=== PATIENT | male | born 1955 ===

== ENCOUNTER 2017-06-19 17:39 | Inpatient (IN) | payer BC ==
[2017-06-19 18:13] LABS: BASO # 0.04 K/mm3 (0.0-2.0); BASO % 0.5 % (0.0-3.0); EOS # 0.3 (0.0-0.7); GRAN # 4.96 (1.4-6.5); GRAN % 60.3 % (50.0-68.0); HEMOGLOBIN 12.6 g/dL (14.0-18.0); LYMPH # 2.5 (1.2-3.4); LYMPH % 30.6 % (22.0-35.0); MEAN CELL VOLUME 82.7 fl (80.0-105.0); MEAN CORPUSCULAR HEMOGLOBIN 28.3 pg (25.0-35.0); MEAN CORPUSCULAR HGB CONC 34.2 g/dl (31.0-37.0); MEAN PLATELET VOLUME 10.5 fl (7.0-11.0); MONO # 0.5 (0.1-0.6); MONO % 5.6 % (1.0-6.0); RBC 4.45 10^6/uL (3.5-6.1); RED CELL DISTRIBUTION WIDTH 13.1 % (11.5-14.5); WHITE BLOOD COUNT 8.2 10^3/ul (4.5-11.0)
--- NOTE | 2017-06-19 18:13 | ED PDOC ---
Arrival/HPI - General Chief Complaint: Weakness/Neurological Deficit Time Seen by Provider: 06/19/17 18:07 Historian: Patient - History of Present Illness Narrative History of Present Illness (Text): 06/19/17 18:05 pt p/w + extreme fatigue/weakness x 4 days ago; pt states he was showering at the time and suddenly felt extreme weakness/nearly passed out; no cold sweats noted, no chest pain, no tightness noted, no fever/chills/sweats, no sob, + palpitations, no abd pain, no n/v, no new numbness/tingling; pt did not feel any improvements with his weakness/fatigue and went to see his PCP today who obtained an ekg which was abnl and pt was instructed to come to ED for further eval; pt denied LOC, no roman, no vision changes, no slurr speech, no facial changes, no fall/trauma/sick contact, no travel; pt denied rashes, no urinary/ bowel changes, no other complaints pt is here for further eval. PCP: ANN MARIE Cards: Malvin Time/Duration: < week (4 days) Symptom Onset: Gradual Symptom Course: Unchanged Activities at Onset: Rest Context: Home Past Medical History - Provider Review Nursing Documentation Reviewed: Yes - Travel History Have you recently traveled outside [place] w/in the past 3 mons?: No - Past History Past History: No Previous - Infectious Disease Hx of Infectious Diseases: None - Cardiac Hx Hypertension: Yes - Pulmonary Hx Respiratory Disorders: No - Neurological Hx Paralysis: No - HEENT Hx HEENT Disorder: No - Renal Hx Renal Disorder: No - Endocrine/Metabolic Hx Diabetes Mellitus Type 2: Yes - Hematological/Oncological Hx Blood Transfusions: No - Integumentary Hx Dermatological Disorder: No - Musculoskeletal/Rheumatological Hx Musculoskeletal Disorders: No - Gastrointestinal Hx Gastrointestinal Disorders: No - Genitourinary/Gynecological Hx Genitourinary Disorders: No - Psychiatric Hx Emotional Abuse: No Hx Physical Abuse: No Hx Substance Use: No - Anesthesia Hx Anesthesia Reactions: No Hx Malignant Hyperthermia: No - Suicidal Assessment Feels Threatened In Home Enviroment: No Family/Social History - Physician Review Nursing Documentation Reviewed: Yes Family/Social History: No Known Family HX Smoking Status: Never Smoked Hx Alcohol Use: No Hx Substance Use: No Hx Substance Use Treatment: No Allergies/Home Meds Allergies/Adverse Reactions: Allergies No Known Allergies Allergy (Verified 04/13/18 17:42) Home Medications: Home Meds Medication Instructions Recorded Confirmed Glipizide 10 mg PO QAM 08/22/14 06/19/17 Metformin HCl [Metformin] 1,000 mg PO BID 08/22/14 06/19/17 Losartan/Hydrochlorothiazide 1 tab PO DAILY 06/19/17 06/19/17 [Hyzaar 25 mg-100 mg] Pregabalin [Lyrica] 50 mg PO DAILY 06/19/17 06/19/17 SITagliptin [Januvia] 50 mg PO DAILY 06/19/17 06/19/17 Review of Systems - Review of Systems Constitutional: Fatigue Eyes: Normal ENT: Normal Respiratory: Normal Cardiovascular: Palpitations. absent: Chest Pain Gastrointestinal: Normal Genitourinary Male: Normal Musculoskeletal: Normal Skin: Normal Neurological: Dizziness, Other (weakness) Endocrine: Normal Hemo/Lymphatic: Normal Psychiatric: Normal Physical Exam Vital Signs Reviewed: Yes Vital Signs Temp Pulse Resp BP Pulse Ox 06/19/17 18:29 98.6 F 78 17 141/57 L 97 06/19/17 18:06 98.6 F 80 19 142/79 99 06/19/17 18:04 98.6 F 82 17 142/79 97 Temperature: Afebrile Blood Pressure: Hypertensive (slightly elevated BP) Pulse: Regular Respiratory Rate: Normal Appearance: Positive for: Well-Appearing, Non-Toxic, Uncomfortable, Other ( resting in bed, cooperative, alert/awake, GCS = 15, oriented x 3, NAD; mildly uncomfortable) Pain Distress: None Mental Status: Positive for: Alert and Oriented X 3 - Systems Exam Head: Present: Atraumatic, Normocephalic Pupils: Present: PERRL, Other (no nystagmus, no photophoboia, sclera anicteric, visual field intact b/l) Extroacular Muscles: Present: EOMI Conjunctiva: Present: Normal Ears: Present: Normal Mouth: Present: Moist Mucous Membranes, Normal Tounge, Normal Teeth, Other (no drooling/stridor, no exudate/lesions, no dysphonia, intact dentitions) Pharnyx: Present: Normal Nose (External): Present: Atraumatic Nose (Internal): Present: Normal Inspection Neck: Present: Normal Range of Motion, Trachea Midline, Other (no meningeal signs, no midline tenderness). No: MIDLINE TENDERNESS Respiratory/Chest: Present: Clear to Auscultation, Good Air Exchange, Other ( CTA b/l, no w/r/r, no accessory muscle use noted, no tachypenia) Cardiovascular: Present: Regular Rate and Rhythm, Normal S1, S2. No: Murmurs Abdomen: Present: Normal Bowel Sounds, Other (well nourished male, no focal tenderness, no masses/rebound/guarding/rigidity, no gan's sign, no mcburney' s point tenderness) Back: Present: Normal Inspection, Other (no midline tenderness). No: CVA Tenderness, Midline Tenderness Upper Extremity: Present: Normal Inspection, Normal ROM, NORMAL PULSES, Neurovascularly Intact, Capillary Refill < 2s Lower Extremity: Present: Normal Inspection, NORMAL PULSES, Normal ROM, Neurovascularly Intact, Capillary Refill < 2 s, Other (no focal tenderness, intact ROM) Neurological: Present: GCS=15, CN II-XII Intact, Speech Normal, Other (no facial asymmetries, no slurr speech, NIH stroke scale ~ 0) Skin: Present: Warm, Normal Color. No: Dry Psychiatric: Present: Alert, Oriented x 3 Medical Decision Making ED Course and Treatment: 06/19/17 18:04 Impression: I have considered all differential diagnoses regarding patients chief medical complaints/clinical findings which include but are not limited to: Plan: -- Cardiac Catherization -- EKG -- Labs -- Chest X-ray -- Brilinta -- Integrilin -- Plavix -- IV Fluids -- Urinalysis -- Reassess and disposition Progress Notes: 06/19/17 18:04 Code heart called/activated 06/19/17 18:12 Patient was administered aspirin, Plavix and Heparin 5000 units IV. Will administer integrilin bolus + brilita upon senior controls engineer's (dr Becker's) recommendation. I spoke to him and he is made aware of pt's complaints and abnl EKG findings Dr Enriquez was contacted additionally, Dr Enriquez will take the case Dr Enriquez would like integrilin/heparin bolus and integrilin gtt. Discussed case with senior controls engineer, Dr. Enriquez, who evaluated patient at bedside, given the large q waves in the inf leads, EKG suggests patient's AMI may have already occurred ~ 24 hours ago; pt will be going up to the laborer [place]; Will page Dr. Ornelas for admission. pt REMAINED CHEST PAIN FREE pt is made aware of his medical results pt agrees with admission 06/19/17 19:00 Dr Ordoñez, flight operations dispatch clerk for Dr Guzman, made aware, agrees with admission Re-evaluation Time: 18:35 Reassessment Condition: Unchanged - Critical Care Critical Care Minutes: 30 minutes Critical Care Time: Excluding Proc Time Narrative Critical Care (Text): 06/19/17 18:41 critical care time: 30min, excluding procedure time, excluding time teaching residents/students/mid-level providers; including initial eval/diagnosis, diagnostic interpretation, re-eval, consultations, final disposition - Lab Interpretations Lab Results: 06/19/17 18:10 06/19/17 18:10 Lab Results 06/19/17 18:10: Sodium 141, Potassium 4.4, Chloride 103, Carbon Dioxide 27, Anion Gap 15, BUN 32 H, Creatinine 1.2, Est GFR ( Amer) > 60, Est GFR ( Non-Af Amer) > 60, Random Glucose 293 H, Calcium 9.8, Total Bilirubin 0.6, AST 63 H, ALT 91 H, Alkaline Phosphatase 50, Lactate Dehydrogenase 1001 H, Total Creatine Kinase 326 H, CK-MB (CK-2) 5.1 H, CK-MB (CK-2) % 1.6 L, Troponin I 6.43 H*, Total Protein 7.4, Albumin 4.1, Globulin 3.3, Albumin/Globulin Ratio 1.3 06/19/17 18:10: PT 13.4 H, INR 1.17 H 06/19/17 18:10: WBC 8.2 D, RBC 4.45, Hgb 12.6 L, Hct 36.8 L, MCV 82.7, MCH 28.3 , MCHC 34.2, RDW 13.1, Plt Count 187, MPV 10.5, Gran % 60.3, Lymph % (Auto) 30.6 , [place] % (Auto) 5.6, Eos % (Auto) 3.0, Baso % (Auto) 0.5, Gran # 4.96, Lymph # ( Auto) 2.5, [place] # (Auto) 0.5, Eos # (Auto) 0.3, Baso # (Auto) 0.04 I have reviewed the lab results: Yes Interpretation: Abnormal lab values (+ trop) - RAD Interpretation Narrative RAD Interpretations (Text): 06/19/17 19:09 no widen mediastinum Radiology Orders: 06/19/17 18:07 CHEST PORTABLE [RAD] Stat Otolaryngology Nurse: ED Physician - EKG Interpretation EKG Interpretation (Text): 06/19/17 18:42 sinus rhythm at 80 bpm, ? 1st degree av block, normal axis, no ectopy, qs in leads III/F, ST elevations noted to leads II/III/F, ST depressions noted to leads I/L, ABNL EKG/concern for AMI; no old ekg to compare with Interpreted by ED Physician: Yes Type: 12 lead EKG Comparison: No previous EKG avail. - Medication Orders Current Medication Orders: Sodium Chloride (Sodium Chloride 0.9%) 1,000 mls @ 100 mls/hr IV .Q10H ROBERTA Last Admin: 06/19/17 18:12 Dose: 100 mls/hr eMAR Start Stop Document 06/19/17 18:12 MS (Rec: 06/19/17 18:12 [facility] [place]-[id number]) Intravenous Solution Start Date 06/19/17 Start Time 18:12 Eptifibatide (Integrilin) 75 mg in 100 mls @ 14.167 mls/hr IV .Q7H4M ROBERTA; 2 MCG /KG/MIN PRN Reason: Protocol Last Admin: 06/19/17 18:32 Dose: 14.167 mls/hr Discontinued Medications Clopidogrel Bisulfate (Plavix) 300 mg PO STAT STA Stop: 06/19/17 18:08 Last Admin: 06/19/17 18:12 Dose: 300 mg Eptifibatide (Integrilin Bolus) 16.5 mg IVP STAT STA Stop: 06/19/17 18:15 Last Admin: 06/19/17 18:20 Dose: 16.5 mg Eptifibatide (Integrilin Bolus) 10 mg IVP STAT STA Stop: 06/19/17 18:27 Last Admin: 06/19/17 18:30 Dose: 10 mg Heparin Sodium (Porcine) (Heparin) 5,000 units IV ONCE ONE PRN Reason: Protocol Stop: 06/19/17 18:19 Last Admin: 04/13/18 18:42 Dose: 5,000 units Ticagrelor (Brilinta) 180 mg PO STAT STA Stop: 06/19/17 18:14 Last Admin: 06/19/17 18:15 Dose: 180 mg Disposition/Present on Arrival - Present on Arrival Any Indicators Present on Arrival: No History of DVT/PE: No History of Uncontrolled Diabetes: No Urinary Catheter: No History of Decub. Ulcer: No History Surgical Site Infection Following: None - Disposition Have Diagnosis and Disposition been Completed?: Yes Diagnosis: AMI (acute myocardial infarction), Weakness, Hyperglycemia due to type 2 diabetes mellitus Disposition: HOSPITALIZED Disposition Time: 18:45 Patient Plan: Admission Patient Problems: Current Active Problems Problem Status Onset AMI (acute myocardial infarction) Acute Hyperglycemia due to type 2 diabetes mellitus Acute Weakness Acute Condition: STABLE
[2017-06-19] MEDS ORDERED: Eptifibatide 20 mg/10mL Inj IVP STA ×2 (18:14→18:26)
[2017-06-19] MEDS ORDERED: Sodium Chloride 0.9% 1,000 ML IV SCH ×2 (18:15→19:56)
[2017-06-19] MEDS ORDERED: Eptifibatide 20 mg/10mL Inj IVP ONE (18:16)
[2017-06-19 18:17] LABS: INR 1.17 (0.93-1.08); PROTHROMBIN TIME 13.4 SECONDS (9.4-12.5)
[2017-06-19] MEDS ORDERED: Lidocaine 2% Inj (20ml) ONE (18:19)
[2017-06-19] MEDS ORDERED: Phenylephrine 10 mg/ml Inj ONE (18:19)
[2017-06-19] MEDS ORDERED: Verapamil 2 ML ONE (18:19)
[2017-06-19] MEDS ORDERED: Heparin 2,000 ML IV ONE (18:20)
[2017-06-19] MEDS ORDERED: Iodixanol 320 MG/ML 100 ML BOTTLE IV ONE (18:20)
[2017-06-19] MEDS ORDERED: Midazolam 2 MG/2 ML VIAL ONE ×2 (18:20→18:56)
[2017-06-19] MEDS ORDERED: Nitroglycerin 50mg in D5W 50 MG/250 ML BOTTLE IV ONE (18:20)
[2017-06-19] MEDS ORDERED: Iohexol 350mgl/ml 50 ML ONE (18:20)
[2017-06-19] MEDS ORDERED: Iodixanol 320 MG/ML 200 ML BOTTLE IV ONE (18:20)
[2017-06-19 18:21] LABS: ALB/GLOB RATIO 1.3 (1.1-1.8); ALBUMIN 4.1 g/dL (3.0-4.8); ALT/SGPT 91 U/L (7-56); AST/SGOT 63 U/L (17-59); BLOOD UREA NITROGEN 32 mg/dL (7-21); CALCIUM 9.8 mg/dL (8.4-10.5); GFR AFRICAN-AMERICAN > 60; GFR NON-AFRICAN AMERICAN > 60
[2017-06-19 18:29] VITALS: BMI 30.6
[2017-06-19] MEDS: Eptifibatide 0.75 mg/ml 75 MG/100 ML BOTTLE IV SCH (18:32)
[2017-06-19 18:38] LABS: CK MB% 1.6 % (2.5-3.0); CK-MB 5.1 ng/mL (0.0-3.6)
--- NOTE | 2017-06-19 18:46 | PCM.RRT ---
<Lala Martel - Last Filed: 06/19/17 19:47> CIVIL PROCESS SERVER Nurse Assessment - Situation Date: 06/19/17 Time CIVIL PROCESS SERVER was called: 18:04 (Code Heart) CIVIL PROCESS SERVER Responder Arrival Time: 18:05 CIVIL PROCESS SERVER Location:: Emergency Room Room Number: 3 CIVIL PROCESS SERVER Called By: RN - Vital Signs Vital Sign: T 98.6, HR 78, BP 141/57, RR 17, 97RA - Recommendations 5) CIVIL PROCESS SERVER Level of Care Recommendations: Latin Dance Instructor Notifications: Attending Physician, Consultations (Dr Enriquez, Dr Becker) I.Reason for CIVIL PROCESS SERVER - A) Acute Change in Patient: Subjective: Mr Marc, 61 years old [place] male was sent by his primary care doctor, Dr Guzman, for abnormal EKG taken in PCP office. Pt has a PMHx of HTN, DM2, started to fee; weak and dizzy on Thursday. He was showering at the time and suddenly felt extreme weakness/nearly passed out, associated with palpitation. Denies cold sweats/chest pain/SOB. The weakness and dizziness persists throughout the week with BP fluctuating high and low. He went to PCP today who sent him to ER for abnormal EKG. In the ED, EKG showed ST elevation in III and AVF with recipricol changes in I and aVL. Q waves seen in III and AVF. Viv heart was called Last stress test, mar 2016, normal Last cardiac catheterization, more than 2 years ago, normal PMD: Dr Guzman Outpatient blue line hanger: Dr Coombs (last seen 6 month ago, renée have appointment in 2 weeks) PMH: HTN, DM2 PSH: pilonidal cyst removal FH: sister - heart attack at age 56 colon cancer SH: Never smoke, no etoh, no drug All: NKDA Med: See JUD - Neurological Status (Select all that apply): Alert, Responsive, Verbal, Follows Commands, Weakness - Respiratory Oxygen Delivery Method: Room Air - Constitutional Appears: No Acute Distress - Head Head Exam: ATRAUMATIC, NORMAL INSPECTION, NORMOCEPHALIC - Eyes Eye Exam: EOMI, Normal appearance, PERRL. absent: Scleral icterus - Respiratory Exam Respiratory Exam: Clear to Ausculation Bilateral, NORMAL BREATHING PATTERN. absent: Rales, Rhonchi, Wheezes - Cardiovascular Exam Cardiovascular Exam: REGULAR RHYTHM, +S1, +S2. absent: Murmur - GI/Abdominal Exam GI & Abdominal Exam: Soft. absent: Guarding, Rigid, Tenderness - Neurological Exam Neurological Exam: Alert, Awake, Oriented x3 - Extremities Exam Extremities Exam: Normal Capillary Refill. absent: Pedal Edema Plan - Assessment of Findings&Treatment Plan STEMI vs obstructive coronary artery disease, likely Inferior at RCA - NS - Pt took 162 aspirin at home; Got 162 here in ED - Plavix 300 (not 600) - ED communicated with Dr Villeda and suggested Brilinta 180 bolus and integrillin - Dr Enriquez recommended Heparin bolus 5000, Integrillin bolus x 2, 15 minutes apart, and integrillin gtt 2 mcg/kg/min - After cath, pt will be admitted inpatient - Dr Coombs, pt's outpatient blue line hanger, will be consulted - Consent was signed - Pt was transferred to the grinding and polishing laborer s/r/d/w Dr. Dunn <Eric Dunn - Last Filed: 06/21/17 15:02> Attending/Attestation - Attestation I have personally seen and examined this patient.: Yes I have fully participated in the care of the patient.: Yes I have reviewed all pertinent clinical information, including history, physical exam and plan: Yes Notes (Text): Patient was seen and examined by me with the resident. Agree with the plan outlined above. Patient was transported to cardiac grinding and polishing laborer.
[2017-06-19 19:11] LABS: TROPONIN I 6.17 ng/mL
--- NOTE | 2017-06-19 20:29 | CARD ---
APPROVED REPORT Procedure(s) performed: Left Heart Catheterization PTCA with Stenting of Mid RCA with LOULOU PTCA with Stenting of Proximal Anomalous Cx with LOULOU HISTORY The patient is a 61 year-old male with a history of : diabetes mellitus with oral treatment , previous diagnostic cath, hypertension , Admitted with Code STEMI. INDICATION The indication(s) include : STEMI . CASE TECHNIQUE The patient was brought emergently to the Cardiac Catheterization Laboratory in a fasting state and was prepped and draped in a sterile manner. The left wrist was infiltrated with 2% Lidocaine subcutaneous anesthesia. A 6FR [employer] sheath was inserted into the left radial artery without difficulty. Coronary angiography was performed using coronary diagnostic catheters. The left coronary system was accessed and visualized with a Diagnostic ,6F JL4 CATH DXT 100 CM catheter. The right coronary system was accessed and visualized with a Diagnostic ,6F JR 4 CATH DXT 100 CM catheter. The left ventricle was accessed and visualized with a 6F PIGTAIL 145 CATH DXT 110 CM catheter. Left ventricular/Aortic Valve gradient assessed on pullback. Left ventriculogram was performed in VEGA projection. Closure device was deployed with a Fr TR Band (Large) without any complications. The patient tolerated the procedure well and there were no complications associated with the procedure. Vessel Analysis The patient's coronary anatomy is right dominant. The left main coronary artery is a size vessel . No Left main, Anomalous origin of Cx from RCA The left anterior descending artery is a medium size vessel with diffuse calcification noted throughout this vessel and without significant stenosis. There is a 50-60% stenosis in the mid segment. The second diagonal branch is a medium size vessel with diffuse calcification noted throughout this vessel and without significant stenosis. The circumflex artery is a medium size vessel with diffuse calcification noted throughout this vessel and with significant stenosis. 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 The first obtuse marginal branch is a medium size vessel with intimal irregularities and without significant stenosis. The right coronary artery is a large size vessel with diffuse calcification noted throughout this vessel and with significant stenosis. There is a 90% stenosis in the mid segment. The right posterior descending artery is a medium size vessel with intimal irregularities and without significant stenosis. The right posterolateral branch is a medium size vessel with intimal irregularities and without significant stenosis. Left Ventricle The left ventricle is borderline in size with low normal contractility. The left ventricular ejection fraction is estimated to be 45-50%. The left ventricular end diastolic pressure is 25 mmHg. There was no gradient across the aortic valve upon pullback. PCI Technique Lesion Anticoagulation was achieved with Heparin. Percutaneous coronary intervention was performed on the mid right coronary artery. The lesion stenosis prior to intervention was 90% with SIGIFREDO 1 flow. A 6 Fr AL 1 Guide Catheter was used to engage the ostium. A Luge 182 Interventional Guidewire was used to cross the lesion. BALLOON DILATION A Balloon catheter 2.0 x 10 mm Sprinter RX was inserted and inflated up to 10.00atm for 9seconds. STENT DEPLOYMENT A drug-eluting stent STENT RESOLUTE KERRIE 2.75 X22 was inserted and inflated up to 10.00atm for 9seconds. POST STENT DEPLOYMENT BALLOON DILATION A Balloon catheter 3.0 x 12 mm Trek RX NC was inserted and inflated up to 16.00atm for 11seconds. Final angiography reveals 0 % stenosis with SIGIFREDO 3 flow. PCI Technique Lesion 2 Percutaneous Coronary Intervention was performed on the proximal circumflex artery segment. The lesion stenosis prior to intervention was 80-90% with SIGIFREDO 2 flow. A 6 Fr AL 1 Guide Catheter was used to engage the ostium. A Luge 182 Interventional Guidewire was used to cross the lesion. STENT DEPLOYMENT A drug-eluting stent STENT RESOLUTE KERRIE 2.75 X15 was inserted and inflated up to 14.00atm for 14seconds. POST STENT DEPLOYMENT BALLOON DILATION A Balloon catheter 3.0 x 8 mm Trek RX NC was inserted and inflated up to 14.00atm for 10seconds. Final angiography reveals 0 % stenosis with SIGIFREDO 3 flow. 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 EF-45-50%, EDP-25 Successful PTCa with LOULOU OF RCA/ Cx Recommendations Aggressive Medical TherapyCardiac Risk Reduction Program Weight Loss Reduction Program ASA and brilanta for one year CC; DRs. Guzman/ Malvin
--- NOTE | 2017-06-19 20:49 | CPOSTOP ---
DATE: CARDIAC SCRAP SAWYER POST PROCEDURE NOTE PHYSICIAN: Keegan Enriquez MD WASH OIL COOLER OPERATOR: Merrick Rosales. TYPE OF ANESTHESIA: Moderate conscious sedation. Total dose 2 mg of Versed, 100 mcg of fentanyl used, periodically started 1 mg of Versed and 50 of fentanyl. PRE-PROCEDURE DIAGNOSIS: Code ST-elevation myocardial infarction, inferior wall myocardial infarction, acute. PROCEDURE PERFORMED: 1. Left heart catheterization. 2. Stenting of right coronary artery mid segment and stenting of proximal circumflex _ anomolous origin from RCA FINDINGS: Two vessels critical disease. FINAL DIAGNOSIS: Two vessels critical disease., Code STEMI POST PROCEDURE CONDITION: Stable. VASCULAR ACCESS SITE: Left radial. CLOSURE DEVICE APPLIED: TR Band TOTAL DOSE OF RADIATION: 55129.5 FLUORO TIME TOTAL: 19 minutes. Keegan Enriquez MD [email or web address]
--- NOTE | 2017-06-19 21:08 | CP.PCM.CON ---
<Laura Garvin - Last Filed: 06/19/17 22:09> History of Present Illness - History of Present Illness History of Present Illness: PGY-2 ICU consult note 61 years old [place] male with PMH of HTN, diabetes present to ED after being sent from by his primary care doctor, Dr Guzman, for abnormal EKG taken in PCP office. Patient states that he started to feel weak and dizzy about 5 days ago. He was showering at the time and suddenly felt extreme weakness, associated with palpitation. He states that he was able to walk long distances and need to take breaks often. He denies cold sweats, fever, chest pain, SOB. The weakness and dizziness persists throughout the week. He also reported fluctuations in his BP stating that his SBP was in the 80s. He went to PCP today and was sent to the ER for abnormal EKG. In the ED, EKG showed ST elevation in III and AVF with recipricol changes in I and aVL with elevated troponins. Q waves seen in III and AVF. Code heart was called. In cath patient received 2 stents RCA and circumflex. Patient deneis abd pain, n/v, dysuria. 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: Dr Coombs (last seen 6 month ago, renée have appointment in 2 weeks) PMH: HTN, DM2 PSH: pilonidal cyst removal Family H: sister - heart attack at age 56 colon cancer Social H: Never smoke, no etoh, no drug All: NKDA Med: See JUD Past Patient History - Infectious Disease Hx of Infectious Diseases: None - Past Social History Smoking Status: Never Smoked - CARDIAC Hx Hypertension: Yes - PULMONARY Hx Respiratory Disorders: No - NEUROLOGICAL Hx Paralysis: No - HEENT Hx HEENT Problems: No - RENAL Hx Chronic Kidney Disease: No - ENDOCRINE/METABOLIC Hx Diabetes Mellitus Type 2: Yes - HEMATOLOGICAL/ONCOLOGICAL Hx Blood Transfusions: No - INTEGUMENTARY Hx Dermatological Problems: No - MUSCULOSKELETAL/RHEUMATOLOGICAL Hx Musculoskeletal Disorders: No - GASTROINTESTINAL Hx Gastrointestinal Disorders: No - GENITOURINARY/GYNECOLOGICAL Hx Genitourinary Disorders: No - PSYCHIATRIC Hx Emotional Abuse: No Hx Physical Abuse: No Hx Substance Use: No - SURGICAL HISTORY Hx Surgeries: Yes - ANESTHESIA Hx Anesthesia Reactions: No Hx Malignant Hyperthermia: No Meds Allergies/Adverse Reactions: Allergies Allergy/AdvReac Type Severity Reaction Status Date / Time No Known Allergies Allergy Verified 06/19/17 17:42 - Medications Medications: Current Medications Aspirin (Ecotrin) 81 mg PO DAILY [facility] Atorvastatin Calcium (Lipitor) 80 mg PO DIN [facility] Glipizide (Glucotrol) 10 mg PO QAM [facility] Eptifibatide (Integrilin) 75 mg in 100 mls @ 14.167 mls/hr IV .Q7H4M [facility]; 2 MCG /KG/MIN PRN Reason: Protocol Stop: 06/20/17 12:30 Last Admin: 06/19/17 18:32 Dose: 14.167 mls/hr Sodium Chloride (Sodium Chloride 0.9%) 1,000 mls @ 50 mls/hr IV .Q20H [facility] Stop: 06/20/17 07:00 Insulin Human Regular (Humulin R Low) 0 units SC ACHS [facility] PRN Reason: Protocol Metoprolol Tartrate (Lopressor) 25 mg PO BID [facility] Ramipril (Altace) 1.25 mg PO DAILY [facility] Sitagliptin Phosphate (Januvia) 50 mg PO DAILY [facility] Ticagrelor (Brilinta) 90 mg PO BID [facility] Physical Exam - Constitutional Appears: No Acute Distress - Head Exam Head Exam: ATRAUMATIC, NORMOCEPHALIC - Eye Exam Eye Exam: EOMI, Normal appearance - ENT Exam ENT Exam: Mucous Membranes Moist - Respiratory Exam Respiratory Exam: Clear to Auscultation Bilateral, NORMAL BREATHING PATTERN. absent: Rales, Rhonchi, Wheezes, Respiratory Distress, Stridor - Cardiovascular Exam Cardiovascular Exam: REGULAR RHYTHM, +S1, +S2. absent: Tachycardia, Systolic Murmur - GI/Abdominal Exam GI & Abdominal Exam: Normal Bowel Sounds, Soft. absent: Distended, Firm, Tenderness - Extremities Exam Extremities exam: Positive for: normal inspection. Negative for: pedal edema, tenderness Additional comments: pressure dressing in place - Neurological Exam Neurological exam: Alert, Oriented x3 - Psychiatric Exam Psychiatric exam: Normal Affect, Normal Mood - Skin Skin Exam: Dry, Intact, Normal Color, Warm Results - Vital Signs Recent Vital Signs: Last Vital Signs Temp 97.3 F L 06/19/17 19:57 Pulse 107 H 06/19/17 18:53 Resp 17 06/19/17 18:29 BP 126/72 06/19/17 19:38 Pulse Ox 97 06/19/17 18:29 - Labs Result Diagrams: 06/19/17 21:32 06/19/17 21:32 Assessment & Plan - Assessment and Plan (Free Text) Assessment: 61 years old male with PMH of HTN, diabetes present to ED with STEMI s/p cath with stents in page RCA and circumflex. Plan: 1. STEMI - patient was code heart, inferior wall GA with Dr Enriquez - stenting fo RCA and proximal circumflex - Patients last stress test was mar 2016, normal, last cardiac catheterization, more than 2 years ago, normal - continue eptifibatide until tomorrow - start lipitor, asa, metoprolol, ramopril - echo pending - lipid panel, TSH, trend cardiac iso - belt splicer Dr. Coombs 2. DM type 2 - continue home glipizide and januvia - iss - accqucheck achs case reviewed and discussed with Dr. Womack <Nicolas Womack Q - Last Filed: 06/19/17 23:18> Meds - Medications Medications: Current Medications Aspirin (Ecotrin) 81 mg PO DAILY [facility] Atorvastatin Calcium (Lipitor) 80 mg PO DIN [facility] Last Admin: 06/19/17 21:00 Dose: 80 mg Glipizide (Glucotrol) 10 mg PO QAM [facility] Eptifibatide (Integrilin) 75 mg in 100 mls @ 14.167 mls/hr IV .Q7H4M [facility]; 2 MCG /KG/MIN PRN Reason: Protocol Stop: 06/20/17 12:30 Last Admin: 06/19/17 18:32 Dose: 14.167 mls/hr Sodium Chloride (Sodium Chloride 0.9%) 1,000 mls @ 50 mls/hr IV .Q20H [facility] Stop: 06/20/17 07:00 Last Admin: 06/19/17 22:29 Dose: 50 mls/hr Insulin Human Regular (Humulin R Low) 0 units SC ACHS [facility] PRN Reason: Protocol Last Admin: 06/19/17 22:27 Dose: 2 units Metoprolol Tartrate (Lopressor) 25 mg PO BID [facility] Ramipril (Altace) 1.25 mg PO DAILY [facility] Sitagliptin Phosphate (Januvia) 50 mg PO DAILY [facility] Ticagrelor (Brilinta) 90 mg PO BID [facility] Results - Vital Signs Recent Vital Signs: Last Vital Signs Temp 97.3 F L 06/19/17 19:57 Pulse 107 H 06/19/17 18:53 Resp 17 06/19/17 18:29 BP 126/72 06/19/17 19:38 Pulse Ox 97 06/19/17 18:29 - Labs Result Diagrams: 06/19/17 21:32 06/19/17 21:32 Labs: Laboratory Results - last 24 hr 06/19/17 06/19/17 06/19/17 21:32 21:32 22:23 WBC 8.1 RBC 4.32 Hgb 12.2 L Hct 35.5 L MCV 82.2 MCH 28.2 MCHC 34.4 RDW 13.1 Plt Count 171 MPV 9.7 Gran % 59.2 Lymph % (Auto) 31.2 [place] % (Auto) 5.7 Eos % (Auto) 3.7 Baso % (Auto) 0.2 Gran # 4.79 Lymph # (Auto) 2.5 [place] # (Auto) 0.5 Eos # (Auto) 0.3 Baso # (Auto) 0.02 Sodium 142 Potassium 4.6 Chloride 103 Carbon Dioxide 31 Anion Gap 14 BUN 32 H Creatinine 1.1 Est GFR ( Amer) > 60 Est GFR (Non-Af Amer) > 60 POC Glucose (mg/dL) 307 H Random Glucose 231 H Calcium 9.6 Lactate Dehydrogenase 956 H Total Creatine Kinase 290 H CK-MB (CK-2) 5.7 H Troponin I 12.60 H* D Attending/Attestation - Attestation I have personally seen and examined this patient.: Yes I have fully participated in the care of the patient.: Yes I have reviewed all pertinent clinical information: Yes
[2017-06-19 21:36] LABS: BASO # 0.02 K/mm3 (0.0-2.0); BASO % 0.2 % (0.0-3.0); EOS # 0.3 (0.0-0.7); EOS % 3.7 % (1.5-5.0); GRAN # 4.79 (1.4-6.5); GRAN % 59.2 % (50.0-68.0); HEMOGLOBIN 12.2 g/dL (14.0-18.0); LYMPH # 2.5 (1.2-3.4); LYMPH % 31.2 % (22.0-35.0); MEAN CELL VOLUME 82.2 fl (80.0-105.0); MEAN CORPUSCULAR HEMOGLOBIN 28.2 pg (25.0-35.0); MEAN CORPUSCULAR HGB CONC 34.4 g/dl (31.0-37.0); MEAN PLATELET VOLUME 9.7 fl (7.0-11.0); MONO # 0.5 (0.1-0.6); MONO % 5.7 % (1.0-6.0); RBC 4.32 10^6/uL (3.5-6.1); RED CELL DISTRIBUTION WIDTH 13.1 % (11.5-14.5); WHITE BLOOD COUNT 8.1 10^3/ul (4.5-11.0)
[2017-06-19 21:44] LABS: BLOOD UREA NITROGEN 32 mg/dL (7-21); CALCIUM 9.6 mg/dL (8.4-10.5); GFR AFRICAN-AMERICAN > 60; GFR NON-AFRICAN AMERICAN > 60
[2017-06-19 22:00] LABS: CK-MB 5.7 ng/mL (0.0-3.6)
[2017-06-19] MEDS: Insulin Reg-LOW-Coverage SC SCH (22:27)
[2017-06-20] MEDS: Eptifibatide 0.75 mg/ml 75 MG/100 ML BOTTLE IV SCH ×2 (01:42→08:21)
[2017-06-20 06:10] LABS: BASO # 0.02 K/mm3 (0.0-2.0); BASO % 0.3 % (0.0-3.0); EOS # 0.2 (0.0-0.7); EOS % 2.9 % (1.5-5.0); GRAN # 5.43 (1.4-6.5); GRAN % 68.4 % (50.0-68.0); HEMOGLOBIN 12.2 g/dL (14.0-18.0); LYMPH # 1.7 (1.2-3.4); LYMPH % 21.8 % (22.0-35.0); MEAN CELL VOLUME 82.7 fl (80.0-105.0); MEAN CORPUSCULAR HEMOGLOBIN 27.8 pg (25.0-35.0); MEAN CORPUSCULAR HGB CONC 33.6 g/dl (31.0-37.0); MEAN PLATELET VOLUME 10.3 fl (7.0-11.0); MONO # 0.5 (0.1-0.6); MONO % 6.6 % (1.0-6.0); RBC 4.39 10^6/uL (3.5-6.1); WHITE BLOOD COUNT 7.9 10^3/ul (4.5-11.0)
[2017-06-20 06:20] LABS: LDL CHOLESTEROL 94 mg/dL (0-129)
[2017-06-20 07:05] LABS: ALB/GLOB RATIO 1.2 (1.1-1.8); ALBUMIN 3.9 g/dL (3.0-4.8); ALT/SGPT 82 U/L (7-56); AST/SGOT 55 U/L (17-59); BLOOD UREA NITROGEN 26 mg/dL (7-21); CALCIUM 9.1 mg/dL (8.4-10.5); GFR AFRICAN-AMERICAN > 60; GFR NON-AFRICAN AMERICAN > 60; HDL CHOLESTEROL 24 mg/dL (29-60)
[2017-06-20] MEDS: Insulin Reg-LOW-Coverage SC SCH ×4 (08:16→21:46)
--- NOTE | 2017-06-20 09:48 | CON ---
DATE: 06/20/2017 INDICATIONS: Acute inferior wall myocardial infarction, status post coronary intervention. HISTORY OF PRESENT ILLNESS: This is a 61-year-old man who had several days of fatigue and not feeling well, lightheadedness. He saw Dr. Guzman yesterday in the office who sent him to the Emergency Room where he was found to have an acute myocardial infarction with ST elevations inferiorly. 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 Enriquez. 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 The procedure was tolerated well. The patient is resting in bed today in the CCU. There was no chest pain or shortness of breath. He feels much better. There is no orthopnea, PND, syncope, presyncope, lightheadedness, vertigo, fever, chills, cough, sputum production, hemoptysis, abdominal pain, nausea, vomiting, diarrhea, constipation, or melena. PAST MEDICAL HISTORY: Notable for hypertension and diabetes. He had a nuclear stress test a couple of years ago. There is no history of prior myocardial infarction, rheumatic fever, angina, congestive heart failure, arrhythmia, stroke, TIA or gout. MEDICATIONS: At the time of admission, included glipizide, losartan and HCT, Januvia, Lyrica and metformin. ALLERGIES: THERE ARE NO MEDICATION ALLERGIES. SOCIAL HISTORY: He is a nonsmoker, nondrinker. He is ambulatory. He lives at home. FAMILY HISTORY: Notable for heart disease. REVIEW OF SYSTEMS: Ten-point review of systems, otherwise, unremarkable except as noted above. PHYSICAL EXAMINATION GENERAL: He is a well-developed male, lying in bed in the CCU, in no acute distress. VITAL SIGNS: He is in sinus rhythm, afebrile. Blood pressure 126/72, respirations 17-18, O2 sat 97% on room air. HEENT: Reveals no neck vein distention, thyromegaly or carotid bruits. Mucous membranes moist. Conjunctivae pink. NECK: Supple. LUNGS: Lung quintana clear. HEART: Reveals normal first and second heart sounds. No murmur, gallop, rub or click. ABDOMEN: Soft. Bowel sounds present. No mass, organomegaly, tenderness, rebound or guarding. No CVA tenderness. No palpable abdominal aortic aneurysm. EXTREMITIES: Reveal no cyanosis, clubbing or edema. NEUROLOGIC: Awake, alert, and oriented. PSYCHIATRIC: Normal as to mood and affect. SKIN: Warm and dry. No rash or cellulitis. LABORATORY DATA AND IMAGING: Chest x-ray is not reported. Lung quintana are clear to my interpretation. EKG demonstrated regular sinus rhythm with ST elevations in II, III, and F. The followup EKG is not available. I will review it when it is available. I reviewed the cineangiography from last night. White count is normal. Hemoglobin 12.2, hematocrit 36.3, platelet count normal. PT 15.4, INR 1.17. Electrolytes: BUN and creatinine unremarkable. Blood sugar is in the 200 range. Magnesium 1.8. LFT is mildly elevated. CK initially 326. Troponin 6.17. Followup troponins are 12.6 and 12.2. Total cholesterol 147, triglycerides 156, LDL 94. TSH is normal. IMPRESSION: Geraldo Gallardo is a 61-year-old man who came in with several days of symptoms including weakness, fatigue, lightheadedness, and vague chest discomfort. 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 PLAN: At this point, he is in the CCU. He is getting Brilinta, ramipril, aspirin, glipizide, Lipitor, metoprolol. He got Integrilin. I will order an echocardiogram. He can be out of bed to the chair. He can go to a Telemetry bed and ambulate. I will review his EKG. If he remains stable, I will plan discharge for tomorrow. We will monitor his blood sugars, input and output. Check stool for occult blood. I will follow along with you ,make additional recommendations based on his clinical course. Rosas Coombs MD [id number]
--- NOTE | 2017-06-20 09:53 | RAD ---
HISTORY: weakness COMPARISON: No prior. FINDINGS: LUNGS: No active pulmonary disease. PLEURA: No significant pleural effusion identified, no pneumothorax apparent. CARDIOVASCULAR: Normal. OSSEOUS STRUCTURES: No significant abnormalities. VISUALIZED UPPER ABDOMEN: Normal. OTHER FINDINGS: None. IMPRESSION: No active disease.
--- NOTE | 2017-06-20 09:57 | CARD ---
APPROVED REPORT EKG Measurement Heart [id number] <Conclusion> Sinus rhythm with 1st degree AV block Inferior infarct, acute
--- NOTE | 2017-06-20 10:45 | CP.CCUPN ---
<Milo Lima - Last Filed: 06/20/17 10:45> CCU Subjective - Physician Review Subjective (Free Text): Critical care progress note: Pt seen and examined at bedside. No acute events overnight. Denies any chest pain or sob. Denies any other complaints. 12 Point ROS performed and neg other than stated above. CCU Objective - Vital Signs / Intake & Output Vital Signs (Last 4 hours): Vital Signs Temp Pulse Resp BP Pulse Ox 06/20/17 10:00 82 06/20/17 09:25 82 122/63 06/20/17 09:22 122/63 06/20/17 08:20 82 97 06/20/17 08:10 73 15 98 06/20/17 08:00 98.3 F 79 128/54 L 97 06/20/17 07:50 77 13 97 06/20/17 07:40 85 97 06/20/17 07:30 76 13 96 06/20/17 07:20 80 98 06/20/17 07:10 72 11 L 98 06/20/17 07:00 73 6 L 97 06/20/17 06:50 74 12 98 Intake and Output (Last 8hrs): Intake & Output 06/19/17 06/20/17 06/20/17 22:59 06:59 14:59 Intake Total 1820 Output Total 2024 Balance -205 Weight 195 lb Intake: IV 1420 Right Antecubital 120 Right Hand 1300 Oral 400 Output: Urine 2025 Urine, Voided 2025 Stool 0 Other: # Voids Urine, Voided 8 - Physical Exam Head: Positive for: Atraumatic, Normocephalic Pupils: Positive for: PERRL, Other (no nystagmus, no photophoboia, sclera anicteric, visual field intact b/l) Extroacular Muscles: Positive for: EOMI Conjunctiva: Positive for: Normal Ears: Positive for: Normal Mouth: Positive for: Moist Mucous Membranes, Normal Tounge, Normal Teeth, Other (no drooling/stridor, no exudate/lesions, no dysphonia, intact dentitions) Pharnyx: Positive for: Normal Nose (External): Positive for: Atraumatic Nose (Internal): Positive for: Normal Inspection Neck: Positive for: Normal Range of Motion, Trachea Midline, Other (no meningeal signs, no midline tenderness). Negative for: MIDLINE TENDERNESS Respiratory/Chest: Positive for: Clear to Auscultation, Good Air Exchange, Other (CTA b/l, no w/r/r, no accessory muscle use noted, no tachypenia) Cardiovascular: Positive for: Regular Rate and Rhythm, Normal S1, S2. Negative for: Murmurs Abdomen: Positive for: Normal Bowel Sounds, Other (well nourished male, no focal tenderness, no masses/rebound/guarding/rigidity, no gan's sign, no mcburney's point tenderness) Back: Positive for: Normal Inspection, Other (no midline tenderness). Negative for: CVA Tenderness, Midline Tenderness Upper Extremity: Positive for: Normal Inspection, Normal ROM, NORMAL PULSES, Neurovascularly Intact, Capillary Refill < 2s Lower Extremity: Positive for: Normal Inspection, NORMAL PULSES, Normal ROM, Neurovascularly Intact, Capillary Refill < 2 s, Other (no focal tenderness, intact ROM) Neurological: Positive for: GCS=15, CN II-XII Intact, Speech Normal, Other (no facial asymmetries, no slurr speech, NIH stroke scale ~ 0) Skin: Positive for: Warm, Normal Color. Negative for: Dry Psychiatric: Positive for: Alert, Oriented x 3 - Medications Active Medications: Active Medications Generic Name Dose Route Start Last Admin Trade Name Freq PRN Reason Stop Dose Admin Aspirin 81 mg 06/20/17 10:00 06/20/17 09:24 Ecotrin PO 81 mg DAILY ROBERTA Administration Atorvastatin Calcium 40 mg 06/20/17 20:00 Lipitor PO DIN ROBERTA Glipizide 10 mg 06/20/17 10:00 06/20/17 09:24 Glucotrol PO 10 mg QAM ROBERTA Administration Eptifibatide 75 mg in 100 mls @ 14.167 mls/hr 06/19/17 18:30 06/20/17 08:21 Integrilin IV 06/20/17 12:30 14.167 mls/hr .Q7H4M ROBERTA Administration Protocol 2 MCG/KG/MIN Insulin Human Regular 0 units 06/19/17 22:00 06/20/17 08:16 Humulin R Low SC 2 units ACHS ROBERTA Administration Protocol Metoprolol Tartrate 25 mg 06/20/17 10:00 06/20/17 09:25 Lopressor PO 25 mg BID ROBERTA Administration Ramipril 1.25 mg 06/20/17 10:00 06/20/17 09:22 Altace PO 1.25 mg DAILY ROBERTA Administration Sitagliptin Phosphate 50 mg 06/20/17 10:00 06/20/17 09:24 Januvia PO 50 mg DAILY ROBERTA Administration Ticagrelor 90 mg 06/20/17 10:00 06/20/17 09:24 Brilinta PO 90 mg BID ROBERTA Administration - Patient Studies Lab Studies: Lab Studies 06/20/17 06/20/17 06/20/17 Range/Units 05:30 05:30 05:30 WBC 7.9 (4.5-11.0) 10^3/ul RBC 4.39 (3.5-6.1) 10^6/uL Hgb 12.2 L (14.0-18.0) g/dL Hct 36.3 L (42.0-52.0) % MCV 82.7 (80.0-105.0) fl MCH 27.8 (25.0-35.0) pg MCHC 33.6 (31.0-37.0) g/dl RDW 13.0 (11.5-14.5) % Plt Count 182 (120.0-450.0) 10^3/uL MPV 10.3 (7.0-11.0) fl Gran % 68.4 H (50.0-68.0) % Lymph % (Auto) 21.8 L (22.0-35.0) % [place] % (Auto) 6.6 H (1.0-6.0) % Eos % (Auto) 2.9 (1.5-5.0) % Baso % (Auto) 0.3 (0.0-3.0) % Gran # 5.43 (1.4-6.5) Lymph # (Auto) 1.7 (1.2-3.4) [place] # (Auto) 0.5 (0.1-0.6) Eos # (Auto) 0.2 (0.0-0.7) Baso # (Auto) 0.02 (0.0-2.0) K/mm3 Sodium 142 (132-148) mmol/L Potassium 3.6 (3.6-5.0) mmol/L Chloride 102 (98-107) mmol/L Carbon Dioxide 28 (21-33) mmol/L Anion Gap 16 (10-20) BUN 26 H (7-21) mg/dL Creatinine 1.0 (0.8-1.5) mg/dl Est GFR ( Amer) > 60 Est GFR (Non-Af Amer) > 60 POC Glucose (mg/dL) (65-110) mg/dL Random Glucose 248 H (70-110) mg/dL Calcium 9.1 (8.4-10.5) mg/dL Phosphorus 2.7 (2.5-4.5) mg/dL Magnesium 1.8 (1.7-2.2) mg/dL Total Bilirubin 1.1 (0.2-1.3) mg/dL AST 55 (17-59) U/L ALT 82 H (7-56) U/L Alkaline Phosphatase 49 (38-126) U/L Lactate Dehydrogenase 933 H (333-699) U/L Total Creatine Kinase 263 H (35-230) U/L CK-MB (CK-2) 4.0 H (0.0-3.6) ng/mL CK-MB (CK-2) % Cancelled Troponin I 12.20 H* ng/mL Total Protein 7.1 (5.8-8.3) g/dL Albumin 3.9 (3.0-4.8) g/dL Globulin 3.2 gm/dL Albumin/Globulin Ratio 1.2 (1.1-1.8) Triglycerides 156 (35-160) mg/dL Cholesterol 147 (130-200) mg/dL LDL Cholesterol Direct 94 (0-129) mg/dL HDL Cholesterol 24 L (29-60) mg/dL TSH 3rd Generation 1.55 (0.46-4.68) mIU/mL 06/19/17 06/19/17 06/19/17 Range/Units 22:23 21:32 21:32 WBC 8.1 (4.5-11.0) 10^3/ul RBC 4.32 (3.5-6.1) 10^6/uL Hgb 12.2 L (14.0-18.0) g/dL Hct 35.5 L (42.0-52.0) % MCV 82.2 (80.0-105.0) fl MCH 28.2 (25.0-35.0) pg MCHC 34.4 (31.0-37.0) g/dl RDW 13.1 (11.5-14.5) % Plt Count 171 (120.0-450.0) 10^3/uL MPV 9.7 (7.0-11.0) fl Gran % 59.2 (50.0-68.0) % Lymph % (Auto) 31.2 (22.0-35.0) % [place] % (Auto) 5.7 (1.0-6.0) % Eos % (Auto) 3.7 (1.5-5.0) % Baso % (Auto) 0.2 (0.0-3.0) % Gran # 4.79 (1.4-6.5) Lymph # (Auto) 2.5 (1.2-3.4) [place] # (Auto) 0.5 (0.1-0.6) Eos # (Auto) 0.3 (0.0-0.7) Baso # (Auto) 0.02 (0.0-2.0) K/mm3 Sodium 142 (132-148) mmol/L Potassium 4.6 (3.6-5.0) mmol/L Chloride 103 (98-107) mmol/L Carbon Dioxide 31 (21-33) mmol/L Anion Gap 14 (10-20) BUN 32 H (7-21) mg/dL Creatinine 1.1 (0.8-1.5) mg/dl Est GFR ( Amer) > 60 Est GFR (Non-Af Amer) > 60 POC Glucose (mg/dL) 307 H (65-110) mg/dL Random Glucose 231 H (70-110) mg/dL Calcium 9.6 (8.4-10.5) mg/dL Phosphorus (2.5-4.5) mg/dL Magnesium (1.7-2.2) mg/dL Total Bilirubin (0.2-1.3) mg/dL AST (17-59) U/L ALT (7-56) U/L Alkaline Phosphatase (38-126) U/L Lactate Dehydrogenase 956 H (333-699) U/L Total Creatine Kinase 290 H (35-230) U/L CK-MB (CK-2) 5.7 H (0.0-3.6) ng/mL CK-MB (CK-2) % Troponin I 12.60 H* D ng/mL Total Protein (5.8-8.3) g/dL Albumin (3.0-4.8) g/dL Globulin gm/dL Albumin/Globulin Ratio (1.1-1.8) Triglycerides (35-160) mg/dL Cholesterol (130-200) mg/dL LDL Cholesterol Direct (0-129) mg/dL HDL Cholesterol (29-60) mg/dL TSH 3rd Generation (0.46-4.68) mIU/mL Laboratory Results - last 24 hr 06/19/17 06/19/17 06/19/17 21:32 21:32 22:23 WBC 8.1 RBC 4.32 Hgb 12.2 L Hct 35.5 L MCV 82.2 MCH 28.2 MCHC 34.4 RDW 13.1 Plt Count 171 MPV 9.7 Gran % 59.2 Lymph % (Auto) 31.2 [place] % (Auto) 5.7 Eos % (Auto) 3.7 Baso % (Auto) 0.2 Gran # 4.79 Lymph # (Auto) 2.5 [place] # (Auto) 0.5 Eos # (Auto) 0.3 Baso # (Auto) 0.02 Sodium 142 Potassium 4.6 Chloride 103 Carbon Dioxide 31 Anion Gap 14 BUN 32 H Creatinine 1.1 Est GFR ( Amer) > 60 Est GFR (Non-Af Amer) > 60 POC Glucose (mg/dL) 307 H Random Glucose 231 H Calcium 9.6 Phosphorus Magnesium Total Bilirubin AST ALT Alkaline Phosphatase Lactate Dehydrogenase 956 H Total Creatine Kinase 290 H CK-MB (CK-2) 5.7 H CK-MB (CK-2) % Troponin I 12.60 H* D Total Protein Albumin Globulin Albumin/Globulin Ratio Triglycerides Cholesterol LDL Cholesterol Direct HDL Cholesterol TSH 3rd Generation 06/20/17 06/20/17 06/20/17 05:30 05:30 05:30 WBC 7.9 RBC 4.39 Hgb 12.2 L Hct 36.3 L MCV 82.7 MCH 27.8 MCHC 33.6 RDW 13.0 Plt Count 182 MPV 10.3 Gran % 68.4 H Lymph % (Auto) 21.8 L [place] % (Auto) 6.6 H Eos % (Auto) 2.9 Baso % (Auto) 0.3 Gran # 5.43 Lymph # (Auto) 1.7 [place] # (Auto) 0.5 Eos # (Auto) 0.2 Baso # (Auto) 0.02 Sodium 142 Potassium 3.6 Chloride 102 Carbon Dioxide 28 Anion Gap 16 BUN 26 H Creatinine 1.0 Est GFR ( Amer) > 60 Est GFR (Non-Af Amer) > 60 POC Glucose (mg/dL) Random Glucose 248 H Calcium 9.1 Phosphorus 2.7 Magnesium 1.8 Total Bilirubin 1.1 AST 55 ALT 82 H Alkaline Phosphatase 49 Lactate Dehydrogenase 933 H Total Creatine Kinase 263 H CK-MB (CK-2) 4.0 H CK-MB (CK-2) % Cancelled Troponin I 12.20 H* Total Protein 7.1 Albumin 3.9 Globulin 3.2 Albumin/Globulin Ratio 1.2 Triglycerides 156 Cholesterol 147 LDL Cholesterol Direct 94 HDL Cholesterol 24 L TSH 3rd Generation 1.55 EKG/Cardiology Studies: Cardiology / EKG Studies 06/20/17 07:41 ELECTROCARDIOGRAM Routine Comment: Reason For Exam: STEMI Fingerstick Blood Sugar Results: 248 Review of Systems - Review of Systems All systems: reviewed and no additional remarkable complaints except (HPI) Assessment/Plan - Assessment and Plan (Free Text) Assessment: 61 years old male with PMH of HTN, diabetes present to ED with STEMI s/p cath with stents in the RCA and circumflex. Neuro: - Stable - AAO x 3 Pulm: - Maintain SPO2 >92 CV: - Hemodynamically stable - Cont Asa, Brillinta and Integrillin - Patients last stress test was mar 2016, normal, last cardiac catheterization, more than 2 years ago, normal - start lipitor, asa, metoprolol, ramopril - echo pending - F/u Cardiology recs GI: - GI ppx Renal: - Replete electrolytes as needed - Avoid nephrotoxic drugs Endo: - continue home glipizide and januvia - Hold metformin for 3 days - iss - accqucheck achs - Maintain blood sugars 140-180 Heme: - Monitor H/H Case and plan was reveiwed and discussed with Dr Fernández. <Michael Fernández - Last Filed: 06/20/17 13:08> CCU Objective - Vital Signs / Intake & Output Vital Signs (Last 4 hours): Vital Signs Pulse BP 06/20/17 10:00 82 06/20/17 09:25 82 122/63 06/20/17 09:22 122/63 Intake and Output (Last 8hrs): Intake & Output 06/19/17 06/20/17 06/20/17 22:59 06:59 14:59 Intake Total 1820 Output Total 2024 Balance -205 Weight 195 lb Intake: IV 1420 Right Antecubital 120 Right Hand 1300 Oral 400 Output: Urine 2024 Urine, Voided 2024 Stool 0 Other: # Voids Urine, Voided 8 - Medications Active Medications: Active Medications Generic Name Dose Route Start Last Admin Trade Name Freq PRN Reason Stop Dose Admin Aspirin 81 mg 06/20/17 10:00 06/20/17 09:24 Ecotrin PO 81 mg DAILY ROBERTA Administration Atorvastatin Calcium 40 mg 06/20/17 20:00 Lipitor PO DIN ROBERTA Glipizide 10 mg 06/20/17 10:00 06/20/17 09:24 Glucotrol PO 10 mg QAM ROBERTA Administration Insulin Human Regular 0 units 06/19/17 22:00 06/20/17 12:16 Humulin R Low SC 2 units ACHS ROBERTA Administration Protocol Metoprolol Tartrate 25 mg 06/20/17 10:00 06/20/17 09:25 Lopressor PO 25 mg BID ROBERTA Administration Ramipril 1.25 mg 06/20/17 10:00 06/20/17 09:22 Altace PO 1.25 mg DAILY ROBERTA Administration Sitagliptin Phosphate 50 mg 06/20/17 10:00 06/20/17 09:24 Januvia PO 50 mg DAILY ROBERTA Administration Ticagrelor 90 mg 06/20/17 10:00 06/20/17 09:24 Brilinta PO 90 mg BID ROBERTA Administration - Patient Studies Lab Studies: Lab Studies 06/20/17 06/20/17 06/20/17 Range/Units 05:30 05:30 05:30 WBC 7.9 (4.5-11.0) 10^3/ul RBC 4.39 (3.5-6.1) 10^6/uL Hgb 12.2 L (14.0-18.0) g/dL Hct 36.3 L (42.0-52.0) % MCV 82.7 (80.0-105.0) fl MCH 27.8 (25.0-35.0) pg MCHC 33.6 (31.0-37.0) g/dl RDW 13.0 (11.5-14.5) % Plt Count 182 (120.0-450.0) 10^3/uL MPV 10.3 (7.0-11.0) fl Gran % 68.4 H (50.0-68.0) % Lymph % (Auto) 21.8 L (22.0-35.0) % [place] % (Auto) 6.6 H (1.0-6.0) % Eos % (Auto) 2.9 (1.5-5.0) % Baso % (Auto) 0.3 (0.0-3.0) % Gran # 5.43 (1.4-6.5) Lymph # (Auto) 1.7 (1.2-3.4) [place] # (Auto) 0.5 (0.1-0.6) Eos # (Auto) 0.2 (0.0-0.7) Baso # (Auto) 0.02 (0.0-2.0) K/mm3 Sodium 142 (132-148) mmol/L Potassium 3.6 (3.6-5.0) mmol/L Chloride 102 (98-107) mmol/L Carbon Dioxide 28 (21-33) mmol/L Anion Gap 16 (10-20) BUN 26 H (7-21) mg/dL Creatinine 1.0 (0.8-1.5) mg/dl Est GFR ( Amer) > 60 Est GFR (Non-Af Amer) > 60 POC Glucose (mg/dL) (65-110) mg/dL Random Glucose 248 H (70-110) mg/dL Calcium 9.1 (8.4-10.5) mg/dL Phosphorus 2.7 (2.5-4.5) mg/dL Magnesium 1.8 (1.7-2.2) mg/dL Total Bilirubin 1.1 (0.2-1.3) mg/dL AST 55 (17-59) U/L ALT 82 H (7-56) U/L Alkaline Phosphatase 49 (38-126) U/L Lactate Dehydrogenase 933 H (333-699) U/L Total Creatine Kinase 263 H (35-230) U/L CK-MB (CK-2) 4.0 H (0.0-3.6) ng/mL CK-MB (CK-2) % Cancelled Troponin I 12.20 H* ng/mL Total Protein 7.1 (5.8-8.3) g/dL Albumin 3.9 (3.0-4.8) g/dL Globulin 3.2 gm/dL Albumin/Globulin Ratio 1.2 (1.1-1.8) Triglycerides 156 (35-160) mg/dL Cholesterol 147 (130-200) mg/dL LDL Cholesterol Direct 94 (0-129) mg/dL HDL Cholesterol 24 L (29-60) mg/dL TSH 3rd Generation 1.55 (0.46-4.68) mIU/mL 06/19/17 06/19/17 06/19/17 Range/Units 22:23 21:32 21:32 WBC 8.1 (4.5-11.0) 10^3/ul RBC 4.32 (3.5-6.1) 10^6/uL Hgb 12.2 L (14.0-18.0) g/dL Hct 35.5 L (42.0-52.0) % MCV 82.2 (80.0-105.0) fl MCH 28.2 (25.0-35.0) pg MCHC 34.4 (31.0-37.0) g/dl RDW 13.1 (11.5-14.5) % Plt Count 171 (120.0-450.0) 10^3/uL MPV 9.7 (7.0-11.0) fl Gran % 59.2 (50.0-68.0) % Lymph % (Auto) 31.2 (22.0-35.0) % [place] % (Auto) 5.7 (1.0-6.0) % Eos % (Auto) 3.7 (1.5-5.0) % Baso % (Auto) 0.2 (0.0-3.0) % Gran # 4.79 (1.4-6.5) Lymph # (Auto) 2.5 (1.2-3.4) [place] # (Auto) 0.5 (0.1-0.6) Eos # (Auto) 0.3 (0.0-0.7) Baso # (Auto) 0.02 (0.0-2.0) K/mm3 Sodium 142 (132-148) mmol/L Potassium 4.6 (3.6-5.0) mmol/L Chloride 103 (98-107) mmol/L Carbon Dioxide 31 (21-33) mmol/L Anion Gap 14 (10-20) BUN 32 H (7-21) mg/dL Creatinine 1.1 (0.8-1.5) mg/dl Est GFR ( Amer) > 60 Est GFR (Non-Af Amer) > 60 POC Glucose (mg/dL) 307 H (65-110) mg/dL Random Glucose 231 H (70-110) mg/dL Calcium 9.6 (8.4-10.5) mg/dL Phosphorus (2.5-4.5) mg/dL Magnesium (1.7-2.2) mg/dL Total Bilirubin (0.2-1.3) mg/dL AST (17-59) U/L ALT (7-56) U/L Alkaline Phosphatase (38-126) U/L Lactate Dehydrogenase 956 H (333-699) U/L Total Creatine Kinase 290 H (35-230) U/L CK-MB (CK-2) 5.7 H (0.0-3.6) ng/mL CK-MB (CK-2) % Troponin I 12.60 H* D ng/mL Total Protein (5.8-8.3) g/dL Albumin (3.0-4.8) g/dL Globulin gm/dL Albumin/Globulin Ratio (1.1-1.8) Triglycerides (35-160) mg/dL Cholesterol (130-200) mg/dL LDL Cholesterol Direct (0-129) mg/dL HDL Cholesterol (29-60) mg/dL TSH 3rd Generation (0.46-4.68) mIU/mL Laboratory Results - last 24 hr 06/19/17 06/19/17 06/19/17 21:32 21:32 22:23 WBC 8.1 RBC 4.32 Hgb 12.2 L Hct 35.5 L MCV 82.2 MCH 28.2 MCHC 34.4 RDW 13.1 Plt Count 171 MPV 9.7 Gran % 59.2 Lymph % (Auto) 31.2 [place] % (Auto) 5.7 Eos % (Auto) 3.7 Baso % (Auto) 0.2 Gran # 4.79 Lymph # (Auto) 2.5 [place] # (Auto) 0.5 Eos # (Auto) 0.3 Baso # (Auto) 0.02 Sodium 142 Potassium 4.6 Chloride 103 Carbon Dioxide 31 Anion Gap 14 BUN 32 H Creatinine 1.1 Est GFR ( Amer) > 60 Est GFR (Non-Af Amer) > 60 POC Glucose (mg/dL) 307 H Random Glucose 231 H Calcium 9.6 Phosphorus Magnesium Total Bilirubin AST ALT Alkaline Phosphatase Lactate Dehydrogenase 956 H Total Creatine Kinase 290 H CK-MB (CK-2) 5.7 H CK-MB (CK-2) % Troponin I 12.60 H* D Total Protein Albumin Globulin Albumin/Globulin Ratio Triglycerides Cholesterol LDL Cholesterol Direct HDL Cholesterol TSH 3rd Generation 06/20/17 06/20/17 06/20/17 05:30 05:30 05:30 WBC 7.9 RBC 4.39 Hgb 12.2 L Hct 36.3 L MCV 82.7 MCH 27.8 MCHC 33.6 RDW 13.0 Plt Count 182 MPV 10.3 Gran % 68.4 H Lymph % (Auto) 21.8 L [place] % (Auto) 6.6 H Eos % (Auto) 2.9 Baso % (Auto) 0.3 Gran # 5.43 Lymph # (Auto) 1.7 [place] # (Auto) 0.5 Eos # (Auto) 0.2 Baso # (Auto) 0.02 Sodium 142 Potassium 3.6 Chloride 102 Carbon Dioxide 28 Anion Gap 16 BUN 26 H Creatinine 1.0 Est GFR ( Amer) > 60 Est GFR (Non-Af Amer) > 60 POC Glucose (mg/dL) Random Glucose 248 H Calcium 9.1 Phosphorus 2.7 Magnesium 1.8 Total Bilirubin 1.1 AST 55 ALT 82 H Alkaline Phosphatase 49 Lactate Dehydrogenase 933 H Total Creatine Kinase 263 H CK-MB (CK-2) 4.0 H CK-MB (CK-2) % Cancelled Troponin I 12.20 H* Total Protein 7.1 Albumin 3.9 Globulin 3.2 Albumin/Globulin Ratio 1.2 Triglycerides 156 Cholesterol 147 LDL Cholesterol Direct 94 HDL Cholesterol 24 L TSH 3rd Generation 1.55 Assessment/Plan - Assessment and Plan (Free Text) Assessment: Patient seen and examined on rounds with resident, agree with note with following additions/exceptions: Patient is 61yo male with PMHx of HTN, DM a/w STEMI s/p PCI, RCA stents. Currently afebrile, HD stable, comfortable in NAD, doing well, chest pain free STEMI s/p PCI HTN DM Recommend: - cont with supp o2 as needed - follow up cultures - BP control - FS control, HOLD metformin - ASA, Brillinta, Statin, BB - DC Integrillin - ECHO - follow up cardiology - GI ppx - DVT ppx - Stable, transfer to telemetry
--- NOTE | 2017-06-20 17:04 | PN ---
DATE: SUBJECTIVE: The patient is 61 years old, seen and examined, lying in bed, seems to be comfortable. No chest pain. No shortness of breath. No nausea or vomiting. No diarrhea. PHYSICAL EXAMINATION: VITAL SIGNS: He is afebrile, pulse 68, respirations 18, blood pressure 136/91. LUNGS: Bilateral good airflow. No rhonchi or crackle. HEART: S1 and S2 audible. ABDOMEN: Soft. Nontender. No rebound. No guarding. NEUROLOGIC: He is awake, alert, oriented, communicative. LABORATORY EXAM: WBC 7.9, hemoglobin 12, hematocrit 36, platelet of 182. Chemistry: Sodium 142, potassium 3.6, chloride 102, CO2 of 20, BUN 26, creatinine 1, blood sugar of 138. Bilateral leg, no edema. Left wrist has a pressure bandage. ASSESSMENT: 1. Status post acute myocardial infarction. 2. Acute inferior wall myocardial infarction, status post right coronary artery angioplasty. 3. Jau-bodoyah-figzagnll diabetes. 4. Hypertension. 5. Hyperlipidemia. 6. Status post circumflex angioplasty. PLAN: Currently, the patient on Plavix, aspirin, Ramipril, Brilinta 90 mg twice a day. Aspirin 81 daily. He is on glipizide. He is on Januvia and atorvastatin. He is also on metoprolol. If the patient remains stable, he will be discharged in the a.m. Levar Kinney MD
[2017-06-21 00:25] VITALS: TEMP 98.6
[2017-06-21 05:57] VITALS: RESP 20; O2SAT 97
[2017-06-21 06:44] LABS: BASO # 0.02 K/mm3 (0.0-2.0); BASO % 0.3 % (0.0-3.0); EOS # 0.3 (0.0-0.7); EOS % 4.2 % (1.5-5.0); GRAN # 4.06 (1.4-6.5); HEMOGLOBIN 11.5 g/dL (14.0-18.0); LYMPH # 2.1 (1.2-3.4); LYMPH % 28.9 % (22.0-35.0); MEAN CELL VOLUME 82.8 fl (80.0-105.0); MEAN CORPUSCULAR HEMOGLOBIN 27.8 pg (25.0-35.0); MEAN CORPUSCULAR HGB CONC 33.6 g/dl (31.0-37.0); MEAN PLATELET VOLUME 10.2 fl (7.0-11.0); MONO # 0.7 (0.1-0.6); MONO % 9.6 % (1.0-6.0); RBC 4.13 10^6/uL (3.5-6.1); RED CELL DISTRIBUTION WIDTH 13.1 % (11.5-14.5); WHITE BLOOD COUNT 7.1 10^3/ul (4.5-11.0)
[2017-06-21 06:50] LABS: BLOOD UREA NITROGEN 22 mg/dL (7-21); CALCIUM 9.1 mg/dL (8.4-10.5); GFR AFRICAN-AMERICAN > 60; GFR NON-AFRICAN AMERICAN > 60
[2017-06-21 07:36] LABS: TROPONIN I 6.94 ng/mL
--- NOTE | 2017-06-21 07:37 | CP.PCM.PN ---
Subjective - Date & Time of Evaluation Date of Evaluation: 06/21/17 Time of Evaluation: 07:00 - Subjective Subjective: Stable on 2R. He feels better. No CP or SOB. V/S noted. RSR PE: Lungs: clear Cor.: S1S2 Abd.; soft Ext.: no edema Neuro.: alert I/O= 1055/1500 Labs noted. Trop today pending Echo: Nl LV. See full report. ECG 06/20: RSR, 1st degree AVB. Acute IMI, STTW changes Objective - Vital Signs/Intake and Output Vital Signs (last 24 hours): Temp Pulse Resp BP Pulse Ox 98.6 F 66 20 141/73 97 06/21/17 05:55 06/21/17 05:55 06/21/17 05:55 06/21/17 05:55 06/21/17 05:55 Intake and Output: 06/21/17 06/21/17 06:59 18:59 Intake Total 120 Output Total 500 Balance -380 - Medications Medications: Current Medications Aspirin (Ecotrin) 81 mg PO DAILY [facility] Last Admin: 06/20/17 09:24 Dose: 81 mg Atorvastatin Calcium (Lipitor) 40 mg PO DIN [facility] Last Admin: 06/20/17 19:47 Dose: 40 mg Glipizide (Glucotrol) 10 mg PO QAM [facility] Last Admin: 06/20/17 09:24 Dose: 10 mg Insulin Human Regular (Humulin R Low) 0 units SC ACHS [facility] PRN Reason: Protocol Last Admin: 06/20/17 21:46 Dose: Not Given Metoprolol Succinate (Toprol Xl) 50 mg PO BRK [facility] Ramipril (Altace) 2.5 mg PO DAILY [facility] Sitagliptin Phosphate (Januvia) 50 mg PO DAILY [facility] Last Admin: 06/20/17 09:24 Dose: 50 mg Ticagrelor (Brilinta) 90 mg PO BID [facility] Last Admin: 06/20/17 17:58 Dose: 90 mg - Labs Labs: 06/21/17 06:00 06/21/17 06:00 PT 13.4 SECONDS (9.4-12.5) H 06/19/17 18:10 INR 1.17 (0.93-1.08) H 06/19/17 18:10 Assessment and Plan - Assessment and Plan (Free Text) Assessment: CAD/STEMI with PCIs RCA and anom CA 06/19. Preserved LV fx. on echo. HBP Diabetes Plan: OOB ad maksim this AM with D/C later today. D/C meds: ASA 81/day, Brilinta 90 BID (for 1 year), metoprolol ER 50/day, atorvastatin 40/day, losartan HCT 100/25 one/day., diabetes meds. Low sat. fat diet Cardiac Rehab to be arranged Office F/U with me next week.
[2017-06-21] MEDS ORDERED: Metoprolol Succinate 50 mg XL Tab PO SCH (08:00)
[2017-06-21] MEDS: Insulin Reg-LOW-Coverage SC SCH (08:24)
--- NOTE | 2017-06-21 09:06 | CARD ---
APPROVED REPORT EXAM: Two-dimensional and M-mode echocardiogram with Doppler and color Doppler. Other Information Quality : AverageRhythm : INDICATION STEMI, PCI 2D DIMENSIONS IVSd1.2 (0.7-1.1cm)LVDd4.4 (3.9-5.9cm) PWd1.2 (0.7-1.1cm)LVDs2.7 (2.5-4.0cm) FS (%) 39.9 %LVEF (%)70.0 (>50%) M-Mode DIMENSIONS Left Atrium (MM)3.40 (2.5-4.0cm)Aortic Root2.90 (2.2-3.7cm) Aortic Cusp Exc.1.80 (1.5-2.0cm) Aortic Valve AoV Peak Hfvuqeqf558.0cm/s Mitral Valve MV E Bbivdqpv824.0cm/sMV A Hifqzfhb29.9cm/sE/A ratio1.2 TDI Lateral E' Peak V8.34cm/sMedial E' Peak V6.56cm/sE/Lateral E'13.4 E/Medial E'17.1 Tricuspid Valve TR Peak Vaumfbmv969cc/sRAP [id number] Peak Gr.7mmHg [id number] LEFT VENTRICLE The left ventricle is normal size. There is mild concentric left ventricular hypertrophy. The left ventricular function is normal. The left ventricular ejection fraction is within the normal range. There is normal LV segmental wall motion. RIGHT VENTRICLE The right ventricle is normal size. ATRIA The left atrium is mildly dilated. The right atrium size is normal. The interatrial septum is intact with no evidence for an atrial septal defect. AORTIC VALVE The aortic valve is mildly calcified. MITRAL VALVE The mitral valve is normal in structure. Mitral regurgitation is trace. TRICUSPID VALVE The tricuspid valve is normal in structure. There is trace tricuspid regurgitation. PULMONIC VALVE The pulmonic valve is not well visualized. GREAT VESSELS The aortic root is normal in size. PERICARDIAL EFFUSION There is no pericardial effusion. <Conclusion> The left ventricle is normal size. There is mild concentric left ventricular hypertrophy. The left ventricular function is normal.
--- NOTE | 2017-06-21 09:08 | CARD ---
APPROVED REPORT EKG Measurement Heart [id number] <Conclusion> Sinus rhythm with 1st degree AV block Possible Left atrial enlargement Inferior infarct, acute STTW changes
--- NOTE | 2017-06-21 09:09 | CARD ---
APPROVED REPORT EKG Measurement Heart [id number] <Conclusion> Sinus rhythm with 1st degree AV block Possible Inferior infarct, acute ST & T wave abnormality, consider lateral ischemia No change c/w earlier ECG
[2017-06-21 09:38] VITALS: BP 151/86
[2017-06-21 09:54] VITALS: PULSE 72
--- NOTE | 2017-06-21 15:58 | DS ---
HISTORY OF PRESENT ILLNESS: The patient is 61 years old, seen and examined, lying in bed, seems to be comfortable, came in hypertensive. Went to see primary care doctor, who did EKG, did not like it. Sent him to emergency room. Underwent cardiac cath and had RCA and circumflex stented. Doing well. PHYSICAL EXAMINATION: GENERAL: He is awake, alert, oriented, communicative. VITAL SIGNS: He is afebrile, pulse 64, respirations 20, blood pressure 151/86. LUNGS: Bilateral good airflow. No rhonchi or crackle. HEART: S1 and S2 audible. ABDOMEN: Soft, obese, nontender. No rebound. No guarding. NEUROLOGIC: He is awake, alert, oriented, communicative. LABORATORY EXAM: WBC 7.1, hemoglobin 11.5, hematocrit 34.2, platelet 179. Chemistry: Sodium 142, potassium 3.9, chloride 106, CO2 of 28, BUN 22, creatinine 1, blood sugar 184, troponin 6.94. ASSESSMENT: 1. Status post acute myocardial infarction, inferior wall. 2. Status post right coronary artery and circumflex angioplasty. 3. Hypertension. 4. Hyperlipidemia. 5. Iht-wzvpeno-qbyeupqhv diabetes. PLAN: The patient is being discharged home today. He will resume his regular medication that is aspirin 81 daily; Brilinta 90 mg twice a day, prescription has been given; metoprolol ER 50 mg daily; atorvastatin 40 mg daily; losartan 100/25 daily and he will follow up with his PMD and he will follow with Dr. Coombs, who will make arrangement for cardiac rehab. Levar Kinney MD
--- NOTE | 2017-06-22 09:14 | CON ---
DATE: 06/19/2017 TYPE OF DICTATION: Consult service. CARDIOLOGY PHYSICIAN: Keegan Enriquez MD. REASON FOR CONSULTATION AND FOLLOWUP: Code STEMI. BRIEF CLINICAL HISTORY: This is a 61-year-old male with past medical history of diabetes, hypertension and hyperlipidemia, came to the emergency room with 2 days' history of feeling very weak, went to office because EKG was suspicious for acute PR. In the ER, patient's code STEMI was activated and Dr. Becker was called, who called me that he is away to take care of the patient for code STEMI. I saw the patient. Patient's code STEMI was already activated. Patient does not have EKG, [address] elevation filled with reciprocal ST-depression in 1 and aVL. Patient is looks like the patient had PR within the last 12 to 24 hours. Family is at the bedside. Risks, benefits and alternatives were discussed with the patient, patient's family and they agreed. Patient's daughter who is working in [facility] agreed and consented for cardiac catheterization and possible angioplasty. PAST HISTORY: Significant for diabetes, hypertension, and hyperlipidemia. PAST SURGICAL HISTORY: Significant for pilonidal cyst removal in 2017. CURRENT MEDICATIONS: Patient is taking metformin, glipizide, Januvia, Lyrica and losartan. ALLERGIES: NO KNOWN DRUG ALLERGY. REVIEW OF SYSTEMS: As per HPI. PHYSICAL EXAMINATION: As follows: VITAL SIGNS: Temperature afebrile, heart rate 80, blood pressure 142/79. HEENT: PERRLA. Extraocular muscles intact. NECK: Supple. No carotid bruits or thyromegaly. CHEST: Clear to auscultation. HEART: S1 and S2, regular. ABDOMEN: Soft. EXTREMITIES: Clubbing and cyanosis negative. LABORATORY DATA: Blood workup as follows: WBC 8.2, hemoglobin 12.6, hematocrit 36.8, platelet count 187. Chemistry shows sodium 141, potassium 4.4, chloride 103, carbon dioxide 27, anion gap of 15, BUN 32, creatinine 1.2. EKG shows normal sinus, ST elevation in inferior lead, . IMPRESSION AND PLAN: Acute inferior wall myocardial infarction, appropriate more than 12 hours duration. The patient was given aspirin, Brilinta, Integrilin, heparin and will take to the pharmacy laboratory technician for after the cardiac catheterization. We will follow with you. Thank you, , for providing us the opportunity in taking care of the patient, Geraldo Gallardo. Keegan Enriquez MD
== END 2017-06-21 13:44 | disposition home or self-care (01) | DRG 247 ==
LOC: ED 17:39 → CATH 18:22 → CCU 20:15 → 2RNO 06-20 10:13
PROVIDERS: ADMIT Internal Medicine Nephrology; ATTEND Internal Medicine Nephrology
PROC: 027135Z Dilation of Coronary Artery, Two Arteries with Two Drug-eluting Intraluminal Devices, Percutaneous Approach (ICD-10-PCS; principal; 2017-06-19)
PROC: 4A023N7 Measurement of Cardiac Sampling and Pressure, Left Heart, Percutaneous Approach (ICD-10-PCS; 2017-06-19)
PROC: B2151ZZ Fluoroscopy of Left Heart using Low Osmolar Contrast (ICD-10-PCS; 2017-06-19)
PROC: B2111ZZ Fluoroscopy of Multiple Coronary Arteries using Low Osmolar Contrast (ICD-10-PCS; 2017-06-19)
DX: I21.19 ST elevation (STEMI) myocardial infarction involving other coronary artery of inferior wall (principal); E11.65 Type 2 diabetes mellitus with hyperglycemia; E78.5 Hyperlipidemia, unspecified; I10 Essential (primary) hypertension; Z79.84 Long term (current) use of oral hypoglycemic drugs; Z82.49 Family history of ischemic heart disease and other diseases of the circulatory system; Z85.038 Personal history of other malignant neoplasm of large intestine

== ENCOUNTER 2017-09-19 10:40 | Emergency (ER) | payer BC ==
[2017-09-19 11:15] VITALS: BMI 30.5
[2017-09-19 11:23] VITALS: RESP 18; O2SAT 98
--- NOTE | 2017-09-19 11:25 | ED PDOC ---
Arrival/HPI <Meryl Burnett - Last Filed: 09/19/17 14:26> <CaliMaury - Last Filed: 09/19/17 14:35> - General Chief Complaint: ENT Problem Time Seen by Provider: 09/19/17 11:06 - History of Present Illness Narrative History of Present Illness (Text): 61 year old male with PMH of [place] s/p cardiac catherization in June 2017 presents with epistaxis from right nostril that started this morning. The bleed happened from his right nostril and continued for 45 minutes. Bleeding stopped by itself. Patient reports a dull headache and tingling of left foot since the bleeding started. Epistaxis restarted at 11:50 from both nostrils once he removed the gauze from his nose. Patient reports that this is the third episode of nosebleed in the past month. Patient was recently put on aspirin and brilinta s/p cardiac catheterization June 19 2017. Patient had very infrequent nosebleeds until this past month. Patient also reports that his labs were done recently and was found to have anemia. Today, he denies dizziness, chest pain, heart palpitations, and shortness of breath. 09/19/17 11:20 09/19/17 11:25 09/19/17 11:52 (Meryl Burnett) Past Medical History - Provider Review Nursing Documentation Reviewed: Yes - Past History Past History: No Previous - Infectious Disease Hx of Infectious Diseases: None - Cardiac Hx Hypertension: Yes - Pulmonary Hx Respiratory Disorders: No - Neurological Hx Paralysis: No - HEENT Hx HEENT Disorder: No - Renal Hx Renal Disorder: No - Endocrine/Metabolic Hx Diabetes Mellitus Type 2: Yes - Hematological/Oncological Hx Blood Transfusions: No - Integumentary Hx Dermatological Disorder: No - Musculoskeletal/Rheumatological Hx Musculoskeletal Disorders: No - Gastrointestinal Hx Gastrointestinal Disorders: No - Genitourinary/Gynecological Hx Genitourinary Disorders: No - Psychiatric Hx Emotional Abuse: No Hx Physical Abuse: No Hx Substance Use: No - Surgical History Hx Cardiac Catheterization: Yes Hx Coronary Stent: Yes - Anesthesia Hx Anesthesia Reactions: No Hx Malignant Hyperthermia: No - Suicidal Assessment Feels Threatened In Home Enviroment: No <Meryl Burnett - Last Filed: 09/19/17 14:26> Family/Social History - Physician Review Nursing Documentation Reviewed: Yes Family/Social History: Unknown Family HX Smoking Status: Never Smoked Hx Alcohol Use: No Hx Substance Use: No Hx Substance Use Treatment: No <Meryl Burnett - Last Filed: 09/19/17 14:26> Allergies/Home Meds <Meryl Burnett - Last Filed: 09/19/17 14:26> <Maury Leiva - Last Filed: 09/19/17 14:35> Allergies/Adverse Reactions: Allergies No Known Allergies Allergy (Verified 06/19/17 17:42) Home Medications: Home Meds Medication Instructions Recorded Confirmed Glipizide 10 mg PO QAM 08/22/14 09/19/17 Metformin HCl [Metformin] 1,000 mg PO BID 08/22/14 09/19/17 Losartan/Hydrochlorothiazide 1 tab PO DAILY 06/19/17 09/19/17 [Hyzaar 25 mg-100 mg] Pregabalin [Lyrica] 50 mg PO DAILY 06/19/17 09/19/17 SITagliptin [Januvia] 50 mg PO DAILY 06/19/17 09/19/17 Aspirin [Lo-Dose Aspirin EC] 81 mg PO DAILY 06/21/17 09/19/17 Atorvastatin [Lipitor] 40 mg PO DIN 06/21/17 09/19/17 Brilinta 90 mg PO BID 06/21/17 09/19/17 Metoprolol Succinate XL [Toprol XL] 50 mg PO DAILY 06/21/17 09/19/17 Review of Systems - Physician Review All systems were reviewed & negative as marked: Yes - Review of Systems Constitutional: Normal Eyes: Normal ENT: Normal Respiratory: Normal Cardiovascular: Normal Gastrointestinal: Normal Musculoskeletal: Normal Skin: Normal Neurological: Headache (dull), Other (tingling of right foot) <Meryl Burnett - Last Filed: 09/19/17 14:26> Physical Exam Vital Signs Reviewed: No Mental Status: Positive for: Alert and Oriented X 3 - Systems Exam Head: Present: Atraumatic, Normocephalic Pupils: Present: PERRL Extroacular Muscles: Present: EOMI Ears: Present: Normal Mouth: Present: Moist Mucous Membranes Nose (External): Present: Atraumatic Nose (Internal): Present: Epistaxis (right nostril. has stopped now. ) Neck: Present: Normal Range of Motion Respiratory/Chest: Present: Clear to Auscultation Cardiovascular: Present: Regular Rate and Rhythm Abdomen: Present: Normal Bowel Sounds Back: Present: Normal Inspection Upper Extremity: Present: Normal Inspection, Normal ROM, NORMAL PULSES Lower Extremity: Present: Normal Inspection, NORMAL PULSES, Normal ROM Neurological: Present: GCS=15, CN II-XII Intact, Speech Normal, Motor Func Grossly Intact Skin: Present: Warm, Dry, Normal Color Psychiatric: Present: Alert, Oriented x 3, Normal Insight, Normal Concentration <Meryl Burnett - Last Filed: 09/19/17 14:26> Vital Signs Temp Pulse Resp BP Pulse Ox 09/19/17 11:22 98 F 69 18 136/83 98 Medical Decision Making <Meryl Burnett - Last Filed: 09/19/17 14:26> <Maury Leiva - Last Filed: 09/19/17 14:35> ED Course and Treatment: Impression: 61 year old male with PMH of [place], s/p cardiac catheterization on Brilinta and aspirin presents with epistaxis from right nostril. Bleeding has stopped. Assessment: Epistaxis Plan: Epistaxis stopped without any intervention. Though patient has concerns about taking Brilinta, there is more of a risk of cardiac events if Brilinta is stopped and patient will be encouraged to continue to take Brilinta and follow up with clicking machine operator, Dr. Rousseau. CBC: 13.3 09/19/17 14:30 (Meryl Burnett) - Lab Interpretations Lab Results: 09/19/17 12:48 Lab Results 09/19/17 12:48: WBC 7.5, RBC 4.79, Hgb 13.3 L, Hct 38.8 L, MCV 81.0, MCH 27.8, MCHC 34.3, RDW 13.6, Plt Count 183, MPV 9.7, Gran % 63.1, Lymph % (Auto) 27.3, Schleicher % (Auto) 6.3 H, Eos % (Auto) 2.9, Baso % (Auto) 0.4, Gran # 4.72, Lymph # ( Auto) 2.0, Schleicher # (Auto) 0.5, Eos # (Auto) 0.2, Baso # (Auto) 0.03 - Medication Orders Current Medication Orders: Sodium Chloride ([place] Nasal Liscomb) 0 ml NS DAILY PRN PRN Reason: Dry nasal passages - PA / MARKET RESEARCH COORDINATOR / Resident Statement AKHIL has reviewed & agrees with the documentation as recorded. / has examined the patient and agrees with the treatment plan. <Meryl Burnett - Last Filed: 09/19/17 14:26> - PA / MARKET RESEARCH COORDINATOR / Resident Statement AKHIL has reviewed & agrees with the documentation as recorded. <Maury Leiva - Last Filed: 09/19/17 14:35> Disposition/Present on Arrival - Present on Arrival Any Indicators Present on Arrival: No History of DVT/PE: No History of Uncontrolled Diabetes: No Urinary Catheter: No History of Decub. Ulcer: No History Surgical Site Infection Following: None - Disposition Have Diagnosis and Disposition been Completed?: Yes Disposition Time: 11:31 Patient Plan: Discharge <Meryl Burnett - Last Filed: 09/19/17 14:26> <Maury Leiva - Last Filed: 09/19/17 14:35> - Disposition Diagnosis: Epistaxis Disposition: HOME/ ROUTINE Patient Problems: Current Active Problems Problem Status Onset Epistaxis Acute Condition: STABLE Discharge Instructions (ExitCare): Nosebleeds Referrals: Juan Alberto Guzman MD [Primary Care Provider] - Follow up with primary Kendall Escamilla DO [Staff Provider] - Follow up with primary Forms: [employer] (Pakistani) - Notes Notes (Text): You were seen and examined today at [facility] for an episode of nosebleed. Nosebleed spontaneously stopped with compression. You will be prescribed a bottle of saline nasal spray to keep your nostrils moist. You should continue to take aspirin and brilinta due to their cardiac benefits after your cardiac catheterization in June. Continue taking the rest of your home medications. You will be referred to ENT, Dr. Escamilla, to evaluate the cause of your frequent epistaxis. You should make an appointment with your PCP. If you start to feel chest pain, severe shortness of breath, or any other concerning symptoms, please come back to see us again. Thank you so much for letting us be a part of your care today. Patient Seen With Resident: In agreement with resident note which contains more details about the patient. Patient was seen and evaluated with resident. Came up with plan and treatment together. of 09/19/17 11:39 09/19/17 14:23 (Meryl Burnett)
[2017-09-19 13:15] LABS: BASO # 0.03 K/mm3 (0.0-2.0); BASO % 0.4 % (0.0-3.0); EOS # 0.2 (0.0-0.7); EOS % 2.9 % (1.5-5.0); GRAN # 4.72 (1.4-6.5); GRAN % 63.1 % (50.0-68.0); HEMOGLOBIN 13.3 g/dL (14.0-18.0); LYMPH % 27.3 % (22.0-35.0); MEAN CORPUSCULAR HEMOGLOBIN 27.8 pg (25.0-35.0); MEAN CORPUSCULAR HGB CONC 34.3 g/dl (31.0-37.0); MEAN PLATELET VOLUME 9.7 fl (7.0-11.0); MONO # 0.5 (0.1-0.6); MONO % 6.3 % (1.0-6.0); RBC 4.79 10^6/uL (3.5-6.1); RED CELL DISTRIBUTION WIDTH 13.6 % (11.5-14.5); WHITE BLOOD COUNT 7.5 10^3/ul (4.5-11.0)
[2017-09-19 14:57] VITALS: BP 141/71; PULSE 81; TEMP 98.1
== END 2017-09-19 14:57 | disposition home or self-care (01) ==
LOC: ED 10:40
DX: R04.0 Epistaxis (principal); I10 Essential (primary) hypertension; D64.9 Anemia, unspecified

== ENCOUNTER 2017-12-20 11:19 | Emergency (ER) | payer BC ==
[2017-12-20 11:19] VITALS: BMI 30.5
[2017-12-20 11:36] VITALS: RESP 18; TEMP 98.2
[2017-12-20] MEDS ORDERED: Lidocaine 5% Patch TD STA (12:59)
--- NOTE | 2017-12-20 13:47 | ED PDOC ---
Arrival/HPI - General Chief Complaint: Back Pain Time Seen by Provider: 12/20/17 12:59 Historian: Patient - History of Present Illness Narrative History of Present Illness (Text): 12/20/17 13:35 62 yo M with PMHx of HTN, DM, recent [place] with RCA stent placement (06/2017) presenting to ED with acute onset R LBP and R gluteal pain. Patient states pain began Jabier and progressively worsened, rated 10/10 in severity, limiting his ability to walk. Leaning forward or raising his leg alleviates the pain. Laying down makes the pain worse. He denies any radiation of pain down his leg. No saddle anesthesia or bladder incontinence noted. ROS otherwise negative. PMHx: HTN, DM PSHx: RCA stent placement Allergies: NKDA Home Medications: as per chart Social Hx: denies alcohol, tobacco, illicit drug use FHx: unknown PMD: Dr. Guzman Time/Duration: < week Symptom Onset: Sudden Symptom Course: Unchanged Quality: Stabbing Severity Level: Severe Activities at Onset: Light Past Medical History - Provider Review Nursing Documentation Reviewed: Yes - Past History Past History: No Previous - Infectious Disease Hx of Infectious Diseases: None - Cardiac Hx TX: Yes (cardiac cath with stent placement) Hx Hypertension: Yes - Pulmonary Hx Respiratory Disorders: No - Neurological Hx Paralysis: No Other/Comment: Diabetic neuropathy - HEENT Hx HEENT Disorder: No - Renal Hx Renal Disorder: No - Endocrine/Metabolic Hx Diabetes Mellitus Type 2: Yes - Hematological/Oncological Hx Blood Transfusions: No - Integumentary Hx Dermatological Disorder: No - Musculoskeletal/Rheumatological Hx Musculoskeletal Disorders: No - Gastrointestinal Hx Gastrointestinal Disorders: No - Genitourinary/Gynecological Hx Genitourinary Disorders: No - Psychiatric Hx Emotional Abuse: No Hx Physical Abuse: No Hx Substance Use: No - Surgical History Hx Cardiac Catheterization: Yes Hx Coronary Stent: Yes - Anesthesia Hx Anesthesia: Yes Hx Anesthesia Reactions: No Hx Malignant Hyperthermia: No - Suicidal Assessment Feels Threatened In Home Enviroment: No Family/Social History - Physician Review Nursing Documentation Reviewed: Yes Family/Social History: Unknown Family HX Smoking Status: Never Smoked Hx Alcohol Use: No Hx Substance Use: No Hx Substance Use Treatment: No Allergies/Home Meds Allergies/Adverse Reactions: Allergies No Known Allergies Allergy (Verified 06/19/17 17:42) Home Medications: Home Meds Medication Instructions Recorded Confirmed Glipizide 10 mg PO QAM 08/22/14 12/20/17 Metformin HCl [Metformin] 1,000 mg PO BID 08/22/14 12/20/17 Pregabalin [Lyrica] 50 mg PO DAILY 06/19/17 12/20/17 SITagliptin [Januvia] 50 mg PO DAILY 06/19/17 12/20/17 Aspirin [Lo-Dose Aspirin EC] 81 mg PO DAILY 06/21/17 12/20/17 Atorvastatin [Lipitor] 40 mg PO DIN 06/21/17 12/20/17 Brilinta 90 mg PO BID 06/21/17 12/20/17 Metoprolol Succinate XL [Toprol XL] 50 mg PO DAILY 06/21/17 12/20/17 Hydrochlorothiazide [Microzide] 1 cap PO DAILY 12/20/17 12/20/17 Losartan [Cozaar] 1 tab PO DAILY 12/20/17 12/20/17 Review of Systems - Review of Systems Constitutional: Normal Eyes: Normal ENT: Normal Respiratory: Normal. absent: SOB, Cough, Wheezing Cardiovascular: Normal. absent: Chest Pain, Palpitations, Edema, Calf Pain, PRAKASH, Syncope Gastrointestinal: Normal. absent: Abdominal Pain, Stool Changes, Constipation, Diarrhea, Nausea, Vomiting Genitourinary Male: Normal Musculoskeletal: Back Pain, Myalgias (R gluteal pain) Skin: Normal Neurological: Normal Endocrine: Normal Hemo/Lymphatic: Normal Psychiatric: Normal Physical Exam Vital Signs Reviewed: Yes Vital Signs Temp Pulse Resp BP Pulse Ox 12/20/17 11:31 98.2 F 60 18 168/77 H 98 Temperature: Afebrile Blood Pressure: Hypertensive Pulse: Regular Respiratory Rate: Normal Appearance: Positive for: Non-Toxic, Uncomfortable Pain Distress: Severe Mental Status: Positive for: Alert and Oriented X 3 - Systems Exam Head: Present: Atraumatic, Normocephalic Pupils: Present: PERRL Extroacular Muscles: Present: EOMI Conjunctiva: Present: Normal Ears: Present: Normal Mouth: Present: Moist Mucous Membranes Neck: Present: Normal Range of Motion Respiratory/Chest: Present: Clear to Auscultation, Good Air Exchange. No: Respiratory Distress, Accessory Muscle Use, Wheezes, Rales, Retracting Cardiovascular: Present: Regular Rate and Rhythm, Normal S1, S2 Abdomen: Present: Normal Bowel Sounds. No: Tenderness, Distention, Peritoneal Signs, Rebound, Guarding, Mass/Organomegaly Back: Present: Normal Inspection. No: CVA Tenderness, Midline Tenderness, Paraspinal Tenderness, Pain with Leg Raise Upper Extremity: Present: Normal Inspection, Normal ROM, NORMAL PULSES, Capillary Refill < 2s. No: Cyanosis, Edema, Tenderness, Swelling, Erythema Lower Extremity: Present: Normal Inspection, NORMAL PULSES, Normal ROM (Limited ROM RLE 2/2 pain), Tenderness (TTP along R piriformis), Capillary Refill < 2 s. No: Edema, CALF TENDERNESS, Swelling, Erythema, Deformity Neurological: Present: CN II-XII Intact, Speech Normal Skin: Present: Warm, Dry, Normal Color. No: Rashes Psychiatric: Present: Alert, Oriented x 3, Normal Insight, Normal Concentration Medical Decision Making ED Course and Treatment: 12/20/17 13:50 Impression: 62 yo M with PMHx of [place] with RCA stent placement, HTN, DM presenting to ED with R LBP and gluteal pain Plan: --toradol --valium --lidoderm patch --CT lumbar spine --reassess and disposition 12/20/17 15:10 Patient states pain meds are helping somewhat. Resting more comfortably, in no acute distress. - RAD Interpretation Narrative RAD Interpretations (Text): 12/20/17 15:11 CT lumbar spine: No fracture/dislocation Disc bulge L3-4 through L5-S1 Central spinal stenosis L4-5 Bilateral foraminal stenosis at L4-5 Unilateral L foraminal stenosis L5-S1 Radiology Orders: 12/20/17 13:20 LUMBAR SPINE W/O CONTRAST [CT] Stat Spikemaking Supervisor: ED Physician - EKG Interpretation EKG Interpretation (Text): 12/20/17 15:13 NSR @ 62 bpm, no STEMI Interpreted by ED Physician: Yes Type: 12 lead EKG - Medication Orders Current Medication Orders: Discontinued Medications Diazepam (Valium) 5 mg PO ONCE ONE; Protocol Stop: 12/20/17 13:00 Last Admin: 12/20/17 13:14 Dose: 5 mg Ketorolac Tromethamine (Toradol) 60 mg IM STAT STA Stop: 12/20/17 13:00 Last Admin: 12/20/17 13:13 Dose: Not Given Non-Admin Reason: Overode med, 2 vials of 30mg pulled from pyxi Lidocaine (Lidoderm) 1 ea TD DAILY STA Stop: 12/20/17 13:00 Last Admin: 12/20/17 13:14 Dose: 1 ea MAR Transdermal Patch Site Document 12/20/17 13:14 OCS (Rec: 12/20/17 13:14 OCS [id number]) Transdermal Patch Site Transdermal Patch Site Right Lower Back Disposition/Present on Arrival - Present on Arrival Any Indicators Present on Arrival: No History of DVT/PE: No History of Uncontrolled Diabetes: No Urinary Catheter: No History of Decub. Ulcer: No History Surgical Site Infection Following: None - Disposition Have Diagnosis and Disposition been Completed?: Yes Diagnosis: Bulging discs, Spinal stenosis at L4-L5 level, Foraminal stenosis of lumbosacral region, Hypertension Disposition: HOME/ ROUTINE Disposition Time: 15:14 Patient Plan: Discharge Condition: STABLE Discharge Instructions (ExitCare): Spinal Stenosis (DC), Spinal Stenosis Stretching Exercises Prescriptions: Cyclobenzaprine [Cyclobenzaprine HCl] 10 mg PO DAILY PRN #7 tab PRN Reason: Pain, Moderate (4-7) Ibuprofen [Motrin] 400 mg PO Q6 #28 tab Lidocaine 5% [Lidoderm] 1 ea TD Q12 5 Days #5 patch Referrals: Camden Ryan MD [Staff Provider] - Follow up with primary Forms: [employer] (Guyanese), WORK NOTE
--- NOTE | 2017-12-20 14:41 | CT ---
Date of service: 12/20/2017 PROCEDURE: CT Lumbar Spine without contrast HISTORY: LBP COMPARISON: None available. TECHNIQUE: Axial computed tomography images were obtained of the lumbar spine without the use of intravenous contrast. Coronal and sagittal reformatted images were created and reviewed. Radiation dose: Total exam DLP = 1114.22 mGy-cm. This CT exam was performed using one or more of the following dose reduction techniques: Automated exposure control, adjustment of the mA and/or kV according to patient size, and/or use of iterative reconstruction technique. FINDINGS: VERTEBRAE: The vertebral bodies are maintained in height. The transverse processes and posterior elements are intact. Normal vertebral alignment is maintained. DISCS/SPINAL CANAL/NEURAL FORAMINA: L1-2: Unremarkable L2-3: Unremarkable. L3-4: Disc height preserved. Diffuse disc bulge. No spinal or foraminal stenosis. L4-5: Disc height preserved. Diffuse disc bulge. No focal herniation. Bilateral degenerative facet arthropathy with bony hypertrophy. Severe right and moderate left neural foraminal stenosis. Moderate central spinal stenosis. L5-S1: Diffuse disc bulge with superimposed right parasagittal disc herniation. Mild left neural foraminal stenosis. No right neural foraminal stenosis. No central spinal stenosis. PARASPINAL SOFT TISSUES: Unremarkable. OTHER FINDINGS: None. IMPRESSION: No fracture/dislocation. Disc bulge L3-4 through L5-S1 with superimposed right parasagittal disc herniation at L5-S1. Central spinal stenosis at L4-5. Bilateral foraminal stenosis at L4-5 and unilateral left foraminal stenosis at L5-S1 as above.
--- NOTE | 2017-12-20 15:15 | CARD ---
APPROVED REPORT Date of service: 12/20/2017 EKG Measurement Heart [id number] <Conclusion> Normal sinus rhythm Tall Q in III Abnormal ECG
[2017-12-20 15:32] VITALS: BP 149/78; PULSE 62; O2SAT 99
== END 2017-12-20 15:47 | disposition home or self-care (01) ==
LOC: ED 11:19
DX: M48.07 Spinal stenosis, lumbosacral region (principal); M48.061 Spinal stenosis, lumbar region without neurogenic claudication; E11.40 Type 2 diabetes mellitus with diabetic neuropathy, unspecified; I10 Essential (primary) hypertension; I25.2 Old myocardial infarction
CPT/HCPCS: 72131; 93005; 99283; J1885